=== PATIENT | female | born 1940 | race Caucasian/White ===

== ENCOUNTER 2016-09-22 12:14 | Inpatient (IN) | payer OTHER, MEDICARE ==
--- NOTE | ~2016-09-22 | EGD ---
EGD REPORT [facility] [address] [address] NAME: SOCO HERRERA : 42 STATUS : ADM IN [facility]#: [id number] AGE: 75 ADM/REG DATE : 09/22/16 MR#: [id number] REPORT SERV DATE: 10/08/16 DICTATED BY: RYAN MATHEWS DATE: 10/08/16 REPORT STATUS : Draft TRANSCRIBED BY: [employer] DATE: 10/08/16 THIS EXAM WAS SENT IN ERROR
--- NOTE | ~2016-09-22 | DS ---
Discharge Summary [facility] [address] [place]. [address] NAME: SOCO HERRERA : 42 STATUS : DIS IN PAT#: [id number] AGE: 75 ADM/REG DATE : 09/22/16 MR#: [id number] REPORT SERV DATE: 10/09/16 DICTATED BY: LESLEE SERRANO DATE: 10/08/16 REPORT STATUS : Draft TRANSCRIBED BY: MODL DATE: 10/08/16 ADMISSION DATE: 09/22/2016 DISCHARGE DATE: 10/08/2016 PRINCIPAL DIAGNOSIS: Lumbar spine infection, status post surgical repair of an L1 compression fracture. SECONDARY DIAGNOSES: Uncontrolled diarrhea, uncontrolled abdominal and back pain, respiratory failure with hypoxemia, and hypertension. HISTORY OF PRESENT ILLNESS: Please see Dr. Ovalle's dictation on 09/28/2016. HOSPITAL COURSE: Please see interim summary by Dr. Zamarripa on 10/05/2016. Subsequent hospital course: The patient's colonoscopy was negative. Pathology was negative. Symptomatic care was applied to the diarrhea with the cessation of medicines that may cause diarrhea including Aricept and initiation of cholestyramine and Levsin therapy. Diarrhea did in fact slow down to a satisfactory level. She still had abdominal pain and back pain but was able to eat and was able to tolerate transition to a longterm facility on 10/08/2016 with diet as tolerated and activity as tolerated with the following medications: Remeron 15 at bedtime, Mylicon t.i.d., Levsin q.4 hours p.r.n., continue intravenous vancomycin for 37 additional days, Valium p.r.n., Norvasc daily, oxycodone p.r.n., Lipitor at bedtime. She will follow up with Dr. Young in a month as well as Dr. Lovell following longterm facility discharge and completion of her antibiotics. LO/OSCAR Leslee Serrano M.D. / [id number] CC: Candelaria Mack II, M.D. Paul Cornea, M.D.
--- NOTE | ~2016-09-22 | EGD ---
EGD REPORT [address] [address] NAME: ESTEFANY CAMARGO : 42 STATUS : ADM IN PAT#: [id number] AGE: 75 ADM/REG DATE : 09/22/16 MR#: [id number] REPORT SERV DATE: 10/07/16 DICTATED BY: DASH MATHEWS DATE: 10/07/16 REPORT STATUS : Draft TRANSCRIBED BY: [facility] DATE: 10/07/16 Endoscopy Center Patient Name: Estefany Camargo Date of : 1940 Attending MD: DASH MATHEWS MD Procedure Date No Time: 10/05/2016 Procedure: Colonoscopy Indications: Abnormal CT of the GI tract Medicines: Monitored Anesthesia Care Complications: No immediate complications. Estimated blood loss: Minimal. Procedure: Pre-Anesthesia Assessment: - ASA Grade Assessment: IV - A patient with severe systemic disease that is a constant threat to life. After I obtained informed consent, the scope was passed under direct vision. Throughout the procedure, the patient's blood pressure, pulse, and oxygen saturations were monitored continuously. The CF [id number] was introduced through the anus and advanced to the terminal ileum, with identification of the appendiceal orifice and IC valve. The colonoscopy was performed without difficulty. The patient tolerated the procedure well. The quality of the bowel preparation was good. Findings: The perianal and digital rectal examinations were normal. Pertinent negatives include no palpable rectal lesions. The terminal ileum contained multiple petechiae. Biopsies were taken with a cold forceps for histology. Estimated blood loss was minimal. Multiple petechiae were found at the ileocecal valve. Biopsies were taken with a cold forceps for histology. Estimated blood loss was minimal. A few small-mouthed diverticula were found in the sigmoid colon. The scope was unable to be retroflexed in the rectum, but the remainder of the exam was otherwise without abnormality. Impression: - Petechia(e) in the terminal ileum. Biopsied. - Petechia(e) at the ileocecal valve. Biopsied. - Diverticulosis in the sigmoid colon. - The examination was otherwise normal. Recommendation: - Return patient to hospital [facility] for ongoing care. Procedure Code(s): --- Professional --- 79980, Colonoscopy, flexible, proximal to splenic EGD REPORT [facility] [address] [place]. [address] NAME: ESTEFANY CAMARGO : 42 STATUS : ADM IN [facility]#: [id number] AGE: 75 ADM/REG DATE : 09/22/16 MR#: [id number] REPORT SERV DATE: 10/07/16 DICTATED BY: DASH MATHEWS DATE: 10/07/16 REPORT STATUS : Draft TRANSCRIBED BY: [employer] DATE: 10/07/16 flexure; with biopsy, single or multiple Diagnosis Code(s): --- Professional --- K63.89, Other specified diseases of intestine K57.30, Diverticulosis of large intestine without perforation or abscess without bleeding R93.3, Abnormal findings on diagnostic imaging of other parts of digestive tract CPT copyright 2013 [employer]. All rights reserved. The codes documented in this report are preliminary and upon partner review may be revised to meet current compliance requirements. Dash Mathews MD DASH MATHEWS MD 10/05/2016 8:27 AM This report has been signed electronically. Number of Addenda: 0 Note Initiated On: 10/05/2016 7:18 AM Scope Withdrawal Time 0 hours 14 minutes 21 seconds [id number] [place] [id number]
--- NOTE | ~2016-09-22 | IDS ---
Interim Discharge Summary [facility] [address] [place]. [address] NAME: SOCO HERRERA : 42 STATUS : ADM IN PAT#: [id number] AGE: 75 ADM/REG DATE : 09/22/16 MR#: [id number] REPORT SERV DATE: 09/28/16 DICTATED BY: ANAHY MORENO DATE: 09/28/16 REPORT STATUS : Draft TRANSCRIBED BY: MODLexa DATE: 09/28/16 ADMISSION DATE: 09/22/2016 DISCHARGE DATE: Date of transfer to this hospital from [place] was 09/22/2016. DIAGNOSES: So far: 1. 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 This is stable, and this is multifactorial. It is probably a combination of dementia, narcotic dependence, benzodiazepine dependence, which have all been addressed and the patient has carrasquillo weaned off most of them or kept on just minimal doses of opiates for now. 2. Functional paraplegia. 3. Physical deconditioning. 4. Chronic moderate dementia with altering mood. 5. Recent repair of L1 burst fracture and arthrodesis by Dr. Lovell on 07/28/2016. 6. A 2 cm seroma at the level of T12 vertebral body for which Dr. Lovell has evaluated again and has suggested no further intervention. 7. 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 This wound culture was positive for methicillin-resistant Staphylococcus aureus and has been treated with vancomycin IV for seven days. The patient is not a candidate for any more antibiotics as the patient has had diarrhea and even though her stool Clostridium difficile is negative, her stool culture displaced absolutely no normal fecal javier. Hence, this candidate is at high risk for Clostridium difficile colitis. Hence, no further antibiotics necessary for this. Only local wound care and I have advised 2% mupirocin application to the area before dressing it. 8. Elevated troponin I, likely a type 2 event and this is stable right now. 9. Other chronic issues include hypertension, acute kidney injury which has resolved, history of breast cancer, and asthma, which are all stable. BRIEF HOSPITAL COURSE: During which I took care of this patient, the patient continues to be in encephalopathy. She has a history of being dependent on narcotics and benzodiazepines. No benzodiazepines have been given to this patient while in the hospital. However, her narcotic use has been minimized to p.r.n. only and just the least minimal dose that is at least effective dose. The patient has been treated with IV vancomycin as her wound culture came back positive for MRSA. However, after the patient has received IV vancomycin for seven days, this has been stopped because the patient had diarrhea and even though her stool C. diff is negative, her stool culture shows no normal fecal javier. The patient other than that, continued to be stable and Wound Care has been given to the patient, and the patient has been receiving local good wound care. Her Iodosorb dressings have been changed to regular dressings, but with application of 2% mupirocin every day before changing the dressings. This should control the MRSA locally. The patient was actually ready for discharge on 09/28/2016 and is medically stable for the discharge. However because of reasons like insurance approval etc., the patient's transfer to an inpatient rehab facility has been delayed. My colleague will be taken over care of this patient on 09/29/2016. Interim Discharge Summary [address] [address] NAME: SOCO HERRERA : 42 STATUS : ADM IN [facility]#: [id number] AGE: 75 ADM/REG DATE : 09/22/16 MR#: [id number] REPORT SERV DATE: 09/28/16 DICTATED BY: ANAHY MORENO DATE: 09/28/16 REPORT STATUS : Draft TRANSCRIBED BY: OSCAR DATE: 09/28/16 FAVIOLA/OSCAR Anahy Moreno M.D. / [id number] CC: Anahy Moreno M.D.
--- NOTE | ~2016-09-22 | EGD ---
EGD REPORT [facility] [address] [address] NAME: ESTEFANY CAMARGO : 42 STATUS : ADM IN PAT#: [id number] AGE: 75 ADM/REG DATE : 09/22/16 MR#: [id number] REPORT SERV DATE: 10/08/16 DICTATED BY: DASH MATHEWS DATE: 10/08/16 REPORT STATUS : Draft [facility]ANSCRIBED BY: [facility] DATE: 10/08/16 Endoscopy Center Patient Name: Estefany Camargo Date of : 1940 Attending MD: DASH MATHEWS MD Procedure Date No Time: 10/05/2016 Procedure: Colonoscopy Indications: Abnormal CT of the GI tract Medicines: Monitored Anesthesia Care Complications: No immediate complications. Estimated blood loss: Minimal. Procedure: Pre-Anesthesia Assessment: - ASA Grade Assessment: IV - A patient with severe systemic disease that is a constant threat to life. After I obtained informed consent, the scope was passed under direct vision. Throughout the procedure, the patient's blood pressure, pulse, and oxygen saturations were monitored continuously. The CF [id number] was introduced through the anus and advanced to the terminal ileum, with identification of the appendiceal orifice and IC valve. The colonoscopy was performed without difficulty. The patient tolerated the procedure well. The quality of the bowel preparation was good. Findings: The perianal and digital rectal examinations were normal. Pertinent negatives include no palpable rectal lesions. The terminal ileum contained multiple petechiae. Biopsies were taken with a cold forceps for histology. Estimated blood loss was minimal. Multiple petechiae were found at the ileocecal valve. Biopsies were taken with a cold forceps for histology. Estimated blood loss was minimal. A few small-mouthed diverticula were found in the sigmoid colon. The scope was unable to be retroflexed in the rectum, but the remainder of the exam was otherwise without abnormality. Impression: - Petechia(e) in the terminal ileum. Biopsied. - Petechia(e) at the ileocecal valve. Biopsied. - Diverticulosis in the sigmoid colon. - The examination was otherwise normal. Recommendation: - Return patient to hospital [facility] for ongoing care. Procedure Code(s): --- Professional --- 70216, Colonoscopy, flexible, proximal to splenic EGD REPORT [facility] [address] [place]. [address] NAME: ESTEFANY CAMARGO : 42 STATUS : ADM IN [facility]#: [id number] AGE: 75 ADM/REG DATE : 09/22/16 MR#: [id number] REPORT SERV DATE: 10/08/16 DICTATED BY: DASH MATHEWS DATE: 10/08/16 REPORT STATUS : Draft TRANSCRIBED BY: [employer] DATE: 10/08/16 flexure; with biopsy, single or multiple Diagnosis Code(s): --- Professional --- K63.89, Other specified diseases of intestine K57.30, Diverticulosis of large intestine without perforation or abscess without bleeding R93.3, Abnormal findings on diagnostic imaging of other parts of digestive tract CPT copyright 2013 [employer] [place] [employer]. All rights reserved. The codes documented in this report are preliminary and upon perioperative assistant review may be revised to meet current compliance requirements. Dash Mathews MD DASH MATHEWS MD 10/05/2016 8:27 AM This report has been signed electronically. Number of Addenda: 0 Note Initiated On: 10/05/2016 7:18 AM Scope Withdrawal Time 0 hours 14 minutes 21 seconds [id number] [place] [id number]
--- NOTE | ~2016-09-22 | CN ---
Consultation Report [facility] [address] [place]. [address] NAME: SOCO HERRERA : 42 STATUS : ADM IN [facility]#: [id number] AGE: 75 ADM/REG DATE : 09/22/16 MR#: [id number] REPORT SERV DATE: 10/02/16 DICTATED BY: WESLEY BAUTISTA DATE: 10/01/16 REPORT STATUS : Draft TRANSCRIBED BY: MODL DATE: 10/01/16 INFECTIOUS DISEASE CONSULT DATE OF CONSULTATION: REASON FOR CONSULT: Colitis and MRSA spine wound infection. HISTORY OF PRESENT ILLNESS: A 75 years old lady with hypertension, multiple vertebral fractures, "dementia," history of bilateral breast cancer, who was admitted at [facility] on 09/17/2016 with somnolence, decreased p.o. intake, low oxygen saturation and productive cough. Again, this is obtained from the chart. The patient is unable to help with much information. Thus, history goes that on 07/28/2016, she had back surgery for these vertebral fractures including L1 "burst fracture." She had arthrodesis from T10-L3. Apparently, she is on home oxygen. [facility]. At the emergency room, the thought was that she took excessive doses of opiates and she was given multiple doses of Narcan followed by a Narcan drip. She was admitted to ICU, given IV fluids. Chest x-ray was very difficult to interpret with poor inspiratory phase and due to obesity. Initially, she was not given antibiotics. On admission, the creatinine was high at 1.9, BUN 29, troponin 0.28. She had a low-grade fever. Blood pressure was initially high, then it became low. Subsequently, she was started on Zosyn around 09/21/2016, because it was thought she had an aspiration pneumonia. Subsequent chest x-ray was E. coli difficult to interpret. She had an MRI of the spine that showed small paraspinal fluid collections around T12 area and a lot of motion artifact. Because of that, she was eventually transferred to [facility] on 09/22/2016 to be seen by her surgeon, Dr. Maura Lovell. His impression was that these were normal or expected changes after such surgery and she needed just wound care. He described "minimal serous drainage." The wound culture grew MRSA, and I do not know how that was collected, but the Gram stain had rare white blood cells and few gram-positive cocci. For that reason, she was given a week of IV vancomycin. The Zosyn was stopped after about 6 days. While at [facility], she developed abdominal pain and abdominal distention. She had multiple stool studies done on 09/21/2016. Stool for white blood cell was negative, C. diff negative. Stool culture showed no pathogens, but no normal javier. Stool for C. diff again on 09/28/2016, was negative and a stool culture on the is pending. She finally had a CT scan without contrast that showed terminal ilium, cecum, ascending and proximal transverse colon wall thickening. For that reason, it sounds like the hourly shift doctor called in [facility] late on 09/29/2016. ID consult was requested yesterday evening and after I discussed with Dr. Zamarripa, I suggested holding this antibiotic since we are not sure what are we treating here, and follow on the stool culture to see if there are any new findings. Meanwhile, Dr. Zamarripa consulted Gastroenterology and the plan was to do a colonoscopy. However, the prep was not done, so that has to be delayed. The CT scan also showed moderate bilateral effusions with atelectases and some evidence of anasarca. Consultation Report [facility] [address] [place]. [address] NAME: SOCO HERRERA : 42 STATUS : ADM IN [facility]#: [id number] AGE: 75 ADM/REG DATE : 09/22/16 MR#: [id number] REPORT SERV DATE: 10/02/16 DICTATED BY: WESLEY BAUTISTA DATE: 10/01/16 REPORT STATUS : Draft TRANSCRIBED BY: MODL DATE: 10/01/16 Of note is that she has been afebrile almost the whole time in the hospital. Blood pressure has not been low. LABORATORY DATA: Lab work today shows a WBC of 6, segments 72, bands 2, hemoglobin 9. Yesterday procalcitonin was 0.08. Liver enzymes were not elevated. Creatinine 0.5. Lactic acid 0.8. Stool for white blood cells again, just 0-5 per high-power field. I tried to discuss with the patient, and she complains of diffuse abdominal pain as well as pain in the inguinal, perineal, and buttocks areas from severe inflammation of what looks like cutaneous candidiasis. She has occasional shortness of breath. She has some dysuria that she is using diapers. She has also nausea. It is unclear how much does she eat. She had one bowel movement today that was brown, liquidy, and one overnight. PAST MEDICAL HISTORY: As I mentioned above plus history of breast cancer. Unclear what kind of treatment did she have for it. She had multiple vertebral fractures. Reported history of chronic back pain. History of cholecystectomy, appendectomy, colon surgery for perforation, and right foot surgery. SOCIAL HISTORY: According to the chart, she is . FAMILY HISTORY: Diabetes, hypertension, and heart disease. MEDICATIONS ON ADMISSION: Albuterol inhaler, Lipitor, Valium p.r.n., Aricept, Lasix, lisinopril, omeprazole, oxybutynin, Roxicodone as needed, MiraLAX, Seroquel, Zoloft, and morphine. ALLERGIES: NONE REPORTED. CURRENT MEDICATIONS: Amlodipine, Lipitor, Aricept, Flonase, Protonix, MiraLAX, Seroquel, Florastor, and Zoloft. ASSESSMENT AND PLAN: 1. Spine surgical site purulent drainage. Prior wound culture grew MRSA. I think we need to reassess the depth of this process which clearly looks infected. I sent a message to Dr. Lovell to discuss with him the consult. 2. Terminal ileitis and right colitis of unknown etiology. She received multiple antibiotics here, a course of Zosyn followed by course of IV vancomycin and one day of Levaquin and Flagyl. However, she has no fever, no leukocytosis, no elevation of procalcitonin. She is unable to help me with more information. I agree with the colonoscopy and we will follow up a repeat stool culture. I discussed with the microbiology lab to look for any unusual organisms. 3. She has severe cutaneous candidiasis in the buttocks perineal and groin areas, and I discussed with the wound care nurse about it. We will use some Zhao cream. I will also request blood cultures because of the spine infection and restart IV vancomycin. I discussed with Dr. Zamarripa. Consultation Report [facility] [address] [place]. [address] NAME: SOCO HERRERA : 42 STATUS : ADM IN PAT#: [id number] AGE: 75 ADM/REG DATE : 09/22/16 MR#: [id number] REPORT SERV DATE: 10/02/16 DICTATED BY: WESLEY BAUTISTA DATE: 10/01/16 REPORT STATUS : Draft TRANSCRIBED BY: OSCAR DATE: 10/01/16 EZE/OSCAR Wesley Bautista M.D. / [id number] CC: Duarte Zamarripa M.D.
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
--- NOTE | ~2016-09-22 | EGD ---
EGD REPORT [facility] [address] [place] [address] NAME: ESTEFANY CAMARGO : 42 STATUS : ADM IN PAT#: [id number] AGE: 75 ADM/REG DATE : 09/22/16 MR#: [id number] REPORT SERV DATE: 10/07/16 DICTATED BY: DASH MATHEWS DATE: 10/07/16 REPORT STATUS : Draft TRANSCRIBED BY: [facility] DATE: 10/07/16 Endoscopy Center Patient Name: Estefany Camargo Date of : 1940 Attending MD: DASH MATHEWS MD Procedure Date No Time: 10/05/2016 Procedure: Colonoscopy Indications: Abnormal CT of the GI tract Medicines: Monitored Anesthesia Care Complications: No immediate complications. Estimated blood loss: Minimal. Procedure: Pre-Anesthesia Assessment: - ASA Grade Assessment: IV - A patient with severe systemic disease that is a constant threat to life. After I obtained informed consent, the scope was passed under direct vision. Throughout the procedure, the patient's blood pressure, pulse, and oxygen saturations were monitored continuously. The CF [id number] was introduced through the anus and advanced to the terminal ileum, with identification of the appendiceal orifice and IC valve. The colonoscopy was performed without difficulty. The patient tolerated the procedure well. The quality of the bowel preparation was good. Findings: The perianal and digital rectal examinations were normal. Pertinent negatives include no palpable rectal lesions. The terminal ileum contained multiple petechiae. Biopsies were taken with a cold forceps for histology. Estimated blood loss was minimal. Multiple petechiae were found at the ileocecal valve. Biopsies were taken with a cold forceps for histology. Estimated blood loss was minimal. A few small-mouthed diverticula were found in the sigmoid colon. The scope was unable to be retroflexed in the rectum, but the remainder of the exam was otherwise without abnormality. Impression: - Petechia(e) in the terminal ileum. Biopsied. - Petechia(e) at the ileocecal valve. Biopsied. - Diverticulosis in the sigmoid colon. - The examination was otherwise normal. Recommendation: - Return patient to [facility] for ongoing care. Procedure Code(s): --- Professional --- 84815, Colonoscopy, flexible, proximal to splenic EGD REPORT [place] [address] [place]. [address] NAME: ESTEFANY CAMARGO : 42 STATUS : [facility]#: [id number] AGE: 75 ADM/REG DATE : 09/22/16 MR#: [id number] REPORT SERV DATE: 10/07/16 DICTATED BY: DASH MATHEWS DATE: 10/07/16 REPORT STATUS : Draft TRANSCRIBED BY: [employer] DATE: 10/07/16 flexure; with biopsy, single or multiple Diagnosis Code(s): --- Professional --- K63.89, Other specified diseases of intestine K57.30, Diverticulosis of large intestine without perforation or abscess without bleeding R93.3, Abnormal findings on diagnostic imaging of other parts of digestive tract CPT copyright 2013 [employer]. All rights reserved. The codes documented in this report are preliminary and upon early childhood review may be revised to meet current compliance requirements. Dash Mathews MD DASH MATHEWS MD 10/05/2016 8:27 AM This report has been signed electronically. Number of Addenda: 0 Note Initiated On: 10/05/2016 7:18 AM Scope Withdrawal Time 0 hours 14 minutes 21 seconds [id number] [place] [id number]
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
--- NOTE | ~2016-09-22 | EGD ---
EGD REPORT [facility] [address] [place] [address] NAME: ESTEFANY CAMARGO : 42 STATUS : ADM IN PAT#: [id number] AGE: 75 ADM/REG DATE : 09/22/16 MR#: [id number] REPORT SERV DATE: 10/08/16 DICTATED BY: DASH MATHEWS DATE: 10/08/16 REPORT STATUS : Draft TRANSCRIBED BY: [facility] DATE: 10/08/16 Endoscopy Center Patient Name: Estefany Camargo Date of : 1940 Attending MD: DASH MATHEWS MD Procedure Date No Time: 10/05/2016 Procedure: Colonoscopy Indications: Abnormal CT of the GI tract Medicines: Monitored Anesthesia Care Complications: No immediate complications. Estimated blood loss: Minimal. Procedure: Pre-Anesthesia Assessment: - ASA Grade Assessment: IV - A patient with severe systemic disease that is a constant threat to life. After I obtained informed consent, the scope was passed under direct vision. Throughout the procedure, the patient's blood pressure, pulse, and oxygen saturations were monitored continuously. The CF [id number] was introduced through the anus and advanced to the terminal ileum, with identification of the appendiceal orifice and IC valve. The colonoscopy was performed without difficulty. The patient tolerated the procedure well. The quality of the bowel preparation was good. Findings: The perianal and digital rectal examinations were normal. Pertinent negatives include no palpable rectal lesions. The terminal ileum contained multiple petechiae. Biopsies were taken with a cold forceps for histology. Estimated blood loss was minimal. Multiple petechiae were found at the ileocecal valve. Biopsies were taken with a cold forceps for histology. Estimated blood loss was minimal. A few small-mouthed diverticula were found in the sigmoid colon. The scope was unable to be retroflexed in the rectum, but the remainder of the exam was otherwise without abnormality. Impression: - Petechia(e) in the terminal ileum. Biopsied. - Petechia(e) at the ileocecal valve. Biopsied. - Diverticulosis in the sigmoid colon. - The examination was otherwise normal. Recommendation: - Return patient to [facility] for ongoing care. Procedure Code(s): --- Professional --- 75170, Colonoscopy, flexible, proximal to splenic EGD REPORT [place] [id number] [place]. [address] NAME: ESTEFANY CAMARGO : 42 STATUS : ADM IN [facility]#: [id number] AGE: 75 ADM/REG DATE : 09/22/16 MR#: [id number] REPORT SERV DATE: 10/08/16 DICTATED BY: DASH MATHEWS DATE: 10/08/16 REPORT STATUS : Draft TRANSCRIBED BY: [employer] DATE: 10/08/16 flexure; with biopsy, single or multiple Diagnosis Code(s): --- Professional --- K63.89, Other specified diseases of intestine K57.30, Diverticulosis of large intestine without perforation or abscess without bleeding R93.3, Abnormal findings on diagnostic imaging of other parts of digestive tract CPT copyright 2013 [employer]. All rights reserved. The codes documented in this report are preliminary and upon armorer technician review may be revised to meet current compliance requirements. Dash Mathews MD DASH MATHEWS MD 10/05/2016 8:27 AM This report has been signed electronically. Number of Addenda: 0 Note Initiated On: 10/05/2016 7:18 AM Scope Withdrawal Time 0 hours 14 minutes 21 seconds [id number] [place] [id number]
--- NOTE | ~2016-09-22 | OP ---
Record Of Operation [facility] [address] [place]. [address] NAME: SOCO HERRERA : 42 STATUS : ADM IN [facility]#: [id number] AGE: 75 ADM/REG DATE : 09/22/16 MR#: [id number] REPORT SERV DATE: 10/03/16 DICTATED BY: LESTER LOVELL II DATE: 10/03/16 REPORT STATUS : Draft TRANSCRIBED BY: MODL DATE: 10/03/16 DATE OF PROCEDURE: 10/02/2016 PREOPERATIVE DIAGNOSES: 1. Recent thoracic fusion secondary to burst fracture. 2. Small thoracic area of skin necrosis, now concerning for dehiscence with likely colonization and possible infection. POSTOPERATIVE DIAGNOSES: 1. Recent thoracic fusion secondary to burst fracture. 2. Small thoracic area of skin necrosis, now concerning for dehiscence with likely colonization and possible infection. PROCEDURE: Irrigation and debridement including resection of skin and subcutaneous fat, thoracic wound. SURGEON: Lester Lovell M.D. FLUIDS: 200 mL LR. ESTIMATED BLOOD LOSS: 40 mL. DRAIN: Superficial Prevena skin V.A.C. PREOPERATIVE HISTORY: This is a friendly 75-year-old female, who was admitted from the halfway with concerns for wound dehiscence and skin necrosis. She is also having medical issues including severe gastrointestinal issues currently. She has been complaining of severe diarrhea since the time of admission. Gastroenterology was seeing her currently. Unfortunately, I saw her several days ago and she was unfortunately covered in feces around her torso area. The nursing staff has been trying to keep up with her bowel movements, but it seemingly has been difficult. At the time of admission, her thoracic area of necrosis appeared to be not full-thickness and likely going to improve with local wound care. Unfortunately, it is worsened, and I discussed it with Dr. Young. I saw the area of concern again, and it was unfortunately at this point open and now draining. DESCRIPTION OF PROCEDURE: After informed consent was obtained, the patient was brought to the operating room at her request, and general anesthesia achieved. She was placed in prone position and the back was prepped and draped in a sterile fashion. At this point, we then excised the area of skin necrosis. This essentially was now creating a sinus tract to her posterior spine following the development of this the central dehiscence. The excisionally debridement was then performed. Skin and subcutaneous tissues were then removed. Overall, we did not see any copious amount of fluid. There was some mild drainage seen superficially at the time of prepping. At this point, we went ahead and extended the dissection down to the spine. There was hardware present, but overall there was only a very small Record Of Operation [address] [place]. [address] NAME: SOCO HERRERA : 42 STATUS : ADM IN PAT#: [id number] AGE: 75 ADM/REG DATE : 09/22/16 MR#: [id number] REPORT SERV DATE: 10/03/16 DICTATED BY: LESTER LOVELL II DATE: 10/03/16 REPORT STATUS : Draft TRANSCRIBED BY: OSCAR DATE: 10/03/16 communication between the spine and the superficial area. The area was now copiously irrigated. Standard closure was then performed followed by placement of the superficial Prevena skin V.A.C. At this point, the patient was then extubated and transferred to PACU in stable condition. EDDIE/OSCAR Lester Lovell II, M.D. / [id number] CC: Duarte Zamarripa M.D.
[~2016-09-22 12:14] MED LIST: ABILIFY10 PO; AMB10 PO; ARICEPT10 PO; ASA5GR PO; ASAB PO; AT25 PO; ATARAX50B PO; COREG3 PO; DIOVAN HCT160 MG/25 PO; DITRO5; DITRO5 PO; FISH-EPA1000 MG PO; GLUCOSAMINEPO PO; L20 PO; LIPITOR10 PO; LORTAB 5 PO; MAXIDE; MELATONIN5 M1 PO; MICRO-K10 MEQ PO; MIRALAX POWDER1 PKT PO; MORPHINE SULFATE ER PO; NAP500 PO; OXYCOD PO; PEP20 PO; PRILO PO; PRILOSEC40 MG PO; PRIN10 PO; PRIN20 PO; SEROQUEL50 MG PO; TRAZ100 PO; TRAZ50 PO; ULTRAM50 PO; V2 PO; VENTOLIN HFA INH; ZESTRIL20 MG PO; ZOL100 PO; ZOL50 PO
[2016-09-23 06:02] LABS: BASOPHILS 0.3 %; BASOPHILS ABSOLUTE 0.03 10/3/uL (0.0-0.16); EOSINOPHILS 0.1 %; EOSINOPHILS ABSOLUTE 0.01 10/3/uL (0.0-0.53); HEMATOCRIT 29.9 % (36.0-48.0); HEMOGLOBIN 9.7 g/dL (12.0-16.0); IMMATURE GRANULOCYTES 2.3 %; IMMATURE GRANULOCYTES ABSOLUTE 0.23 10/3/uL (0.0-0.11); LYMPHOCYTES 10.1 %; MEAN PLATELET VOLUME 9.3 fL (9.2-13.0); MONOCYTES 7.5 %; MONOCYTES ABSOLUTE 0.74 10/3/uL (0.21-1.20); NEUTROPHILS 79.7 %; NEUTROPHILS ABSOLUTE 7.86 10/3/uL (2.02-8.40); PLATELET COUNT 186 10/3/uL (150-400); RBC DISTRIBUTION WIDTH 16.5 % (12.0-16.0); RED CELL COUNT 3.13 10/6/uL (4.0-5.6); WHITE BLOOD CELLS 9.9 10/3/uL (4.5-10.5)
[2016-09-23 06:03] LABS: MANUAL DIFF NO %; MEAN CORPUS HGB CONC 32.4 g/dL (32.0-36.0); MEAN CORPUSCULAR VOLUME 95.5 fL (80-100)
[2016-09-23 06:14] LABS: BUN (BLOOD UREA NITROGEN) 9 MG/DL (6-23); CALCIUM, SERUM 8.4 MG/DL (8.5-10.4); CHLORIDE, SERUM 114 MMOL/L (96-112); CO2 (CARBON DIOXIDE) 23 MMOL/L (24-34); CREATININE 0.57 MG/DL (0.55-1.02); GFR AFRICAN AMERICAN 106 ML/MIN (>=60); GFR NON AFRICAN AMERICAN 91 ML/MIN (>=60); SODIUM, SERUM 147 MMOL/L (135-148)
[2016-09-23 06:15] LABS: GLUCOSE, SERUM 114 MG/DL (60-99); POTASSIUM, SERUM 3.5 MMOL/L (3.5-5.3)
[2016-09-24 06:14] LABS: HEMATOCRIT 29.8 % (36.0-48.0); HEMOGLOBIN 9.6 g/dL (12.0-16.0); MEAN CORPUS HGB CONC 32.2 g/dL (32.0-36.0); MEAN CORPUSCULAR HEMOGLOB 31.3 pg (26.0-34.0); MEAN CORPUSCULAR VOLUME 97.1 fL (80-100); MEAN PLATELET VOLUME 8.9 fL (9.2-13.0); PLATELET COUNT 207 10/3/uL (150-400); RBC DISTRIBUTION WIDTH 16.2 % (12.0-16.0); RED CELL COUNT 3.07 10/6/uL (4.0-5.6); WHITE BLOOD CELLS 10.4 10/3/uL (4.5-10.5)
[2016-09-24 06:15] LABS: MANUAL DIFF YES %
[2016-09-24 06:36] LABS: BUN (BLOOD UREA NITROGEN) 7 MG/DL (6-23); CALCIUM, SERUM 8.7 MG/DL (8.5-10.4); CHLORIDE, SERUM 112 MMOL/L (96-112); CO2 (CARBON DIOXIDE) 22 MMOL/L (24-34); CREATININE 0.55 MG/DL (0.55-1.02); GFR AFRICAN AMERICAN 107 ML/MIN (>=60); GFR NON AFRICAN AMERICAN 92 ML/MIN (>=60); GLUCOSE, SERUM 127 MG/DL (60-99); SODIUM, SERUM 143 MMOL/L (135-148); VANCOMYCIN TROUGH 10.3 MCG/ML (10.0-20.0)
[2016-09-24 08:13] LABS: BAND NEUTROPHILS 2 %; LYMPHOCYTES 11 %; LYMPHOCYTES ABSOLUTE (CALC) 1.14 10/3/uL (0.67-4.30); MONOCYTES 3 %; MONOCYTES ABSOLUTE (CALC) 0.31 10/3/uL (0.21-1.20); NEUTROPHILS ABSOLUTE (CALC) 8.94 10/3/uL (2.02-8.40); PLATELET ESTIMATE ADQ (ADEQUATE); RBC MORPHOLOGY NORM (NORMAL); SEGMENTED NEUTROPHIL (0) 84 %; TOTAL NUCLEATED CELLS 100
[2016-09-24 12:59] LABS: ALLENS TEST Pos; BE (BASE EXCESS) -2.2 MEQ/L (0 +/- 2.5); CARBOXYHEMOGLOBIN 0.1 % (0-3); DEVICE NC; HCO3 (ACTUAL BICARBONATE) 22.3 MEQ/L (23-27); HEMOBLOGIN CONTENT 10.1 G/DL (12-16); INSTRUMENT SERIAL # 8083; METHEMOGLOBIN 0.1 % (0-3); O2 CONTENT 13.9 VOL% (18-24); PCO2 (CO2 TENSION) 37 MMHG (35-45); PO2 (O2 TENSION) 93 MMHG (79-93); SAMPLE Arterial; pH 7.39 (7.37-7.43)
[2016-09-25 04:48] LABS: BASOPHILS 0.2 %; BASOPHILS ABSOLUTE 0.02 10/3/uL (0.0-0.16); EOSINOPHILS 1.6 %; EOSINOPHILS ABSOLUTE 0.14 10/3/uL (0.0-0.53); HEMATOCRIT 27.7 % (36.0-48.0); HEMOGLOBIN 8.6 g/dL (12.0-16.0); IMMATURE GRANULOCYTES 1.8 %; IMMATURE GRANULOCYTES ABSOLUTE 0.16 10/3/uL (0.0-0.11); LYMPHOCYTES 13.6 %; LYMPHOCYTES ABSOLUTE 1.19 10/3/uL (0.67-4.30); MANUAL DIFF NO %; MEAN CORPUSCULAR HEMOGLOB 30.4 pg (26.0-34.0); MEAN CORPUSCULAR VOLUME 97.9 fL (80-100); MEAN PLATELET VOLUME 9.1 fL (9.2-13.0); MONOCYTES 9.9 %; MONOCYTES ABSOLUTE 0.86 10/3/uL (0.21-1.20); NEUTROPHILS 72.9 %; NEUTROPHILS ABSOLUTE 6.36 10/3/uL (2.02-8.40); PLATELET COUNT 160 10/3/uL (150-400); RBC DISTRIBUTION WIDTH 16.2 % (12.0-16.0); RED CELL COUNT 2.83 10/6/uL (4.0-5.6); WHITE BLOOD CELLS 8.7 10/3/uL (4.5-10.5)
[2016-09-25 05:07] LABS: BUN (BLOOD UREA NITROGEN) 7 MG/DL (6-23); CALCIUM, SERUM 7.9 MG/DL (8.5-10.4); CHLORIDE, SERUM 113 MMOL/L (96-112); CO2 (CARBON DIOXIDE) 20 MMOL/L (24-34); CREATININE 0.51 MG/DL (0.55-1.02); GFR AFRICAN AMERICAN 110 ML/MIN (>=60); GFR NON AFRICAN AMERICAN 95 ML/MIN (>=60); GLUCOSE, SERUM 81 MG/DL (60-99); POTASSIUM, SERUM 3.6 MMOL/L (3.5-5.3); SODIUM, SERUM 147 MMOL/L (135-148)
[2016-09-27 06:51] LABS: HEMATOCRIT 31.1 % (36.0-48.0); MANUAL DIFF YES %; MEAN CORPUS HGB CONC 32.2 g/dL (32.0-36.0); MEAN CORPUSCULAR HEMOGLOB 31.2 pg (26.0-34.0); MEAN CORPUSCULAR VOLUME 96.9 fL (80-100); MEAN PLATELET VOLUME 9.8 fL (9.2-13.0); NUCLEATED RED BLOOD CELLS 2.1 /100WBC (0-0); PLATELET COUNT 218 10/3/uL (150-400); RBC DISTRIBUTION WIDTH 16.7 % (12.0-16.0); RED CELL COUNT 3.21 10/6/uL (4.0-5.6); WHITE BLOOD CELLS 8.5 10/3/uL (4.5-10.5)
[2016-09-27 07:02] LABS: CALCIUM, SERUM 8.1 MG/DL (8.5-10.4); CHLORIDE, SERUM 107 MMOL/L (96-112); CO2 (CARBON DIOXIDE) 24 MMOL/L (24-34); CREATININE 0.45 MG/DL (0.55-1.02); GFR AFRICAN AMERICAN 114 ML/MIN (>=60); GFR NON AFRICAN AMERICAN 99 ML/MIN (>=60); SODIUM, SERUM 142 MMOL/L (135-148)
[2016-09-27 07:04] LABS: BUN (BLOOD UREA NITROGEN) 2 MG/DL (6-23); GLUCOSE, SERUM 118 MG/DL (60-99); POTASSIUM, SERUM 3.3 MMOL/L (3.5-5.3)
[2016-09-27 07:44] LABS: BAND NEUTROPHILS 7 %; IMMATURE GRANS ABSOLUTE (CALC) 0.26 10/3/uL (0.0-0.11); LYMPHOCYTES 11 %; LYMPHOCYTES ABSOLUTE (CALC) 0.94 10/3/uL (0.67-4.30); METAMYELOCYTES 1 %; MONOCYTES 6 %; MONOCYTES ABSOLUTE (CALC) 0.51 10/3/uL (0.21-1.20); MYELOCYTES 2 %; SEGMENTED NEUTROPHIL (0) 73 %; TOTAL NUCLEATED CELLS 100
[2016-09-27 07:46] LABS: ANISOCYTOSIS 1+ (5-10/OIF) (0-5/OIF); PLATELET ESTIMATE ADQ (ADEQUATE)
[2016-09-28 06:42] LABS: HEMATOCRIT 29.5 % (36.0-48.0); HEMOGLOBIN 9.6 g/dL (12.0-16.0); MEAN CORPUS HGB CONC 32.5 g/dL (32.0-36.0); MEAN CORPUSCULAR VOLUME 95.2 fL (80-100); PLATELET COUNT 201 10/3/uL (150-400); RBC DISTRIBUTION WIDTH 16.9 % (12.0-16.0); WHITE BLOOD CELLS 8.4 10/3/uL (4.5-10.5)
[2016-09-28 06:43] LABS: MANUAL DIFF YES %
[2016-09-28 06:59] LABS: BUN (BLOOD UREA NITROGEN) 3 MG/DL (6-23); CALCIUM, SERUM 8.1 MG/DL (8.5-10.4); CHLORIDE, SERUM 107 MMOL/L (96-112); CO2 (CARBON DIOXIDE) 25 MMOL/L (24-34); GFR AFRICAN AMERICAN 111 ML/MIN (>=60); GFR NON AFRICAN AMERICAN 95 ML/MIN (>=60); GLUCOSE, SERUM 102 MG/DL (60-99); SODIUM, SERUM 144 MMOL/L (135-148)
[2016-09-28 07:34] LABS: BAND NEUTROPHILS 7 %; LYMPHOCYTES 10 %; LYMPHOCYTES ABSOLUTE (CALC) 0.84 10/3/uL (0.67-4.30); MONOCYTES 6 %; NEUTROPHILS ABSOLUTE (CALC) 7.06 10/3/uL (2.02-8.40); PLATELET ESTIMATE ADQ (ADEQUATE); RBC MORPHOLOGY NORM (NORMAL); SEGMENTED NEUTROPHIL (0) 77 %; TOTAL NUCLEATED CELLS 100
[2016-09-30 05:41] LABS: A/G RATIO 0.6 (0.7-1.9); ALBUMIN 2.2 G/DL (3.5-5.0); BUN (BLOOD UREA NITROGEN) 3 MG/DL (6-23); CALCIUM, SERUM 7.9 MG/DL (8.5-10.4); CHLORIDE, SERUM 101 MMOL/L (96-112); CO2 (CARBON DIOXIDE) 29 MMOL/L (24-34); GFR AFRICAN AMERICAN 119 ML/MIN (>=60); GFR NON AFRICAN AMERICAN 103 ML/MIN (>=60); GLUCOSE, SERUM 113 MG/DL (60-99); SGPT(ALT) 20 U/L (5-65); SODIUM, SERUM 143 MMOL/L (135-148); TOTAL BILIRUBIN 0.8 MG/DL (0-1.2); TOTAL PROTEIN 6.2 G/DL (6.0-8.5)
[2016-09-30 05:43] LABS: ALKALINE PHOSPHATASE 87 U/L (45-117); HEMATOCRIT 30.5 % (36.0-48.0); HEMOGLOBIN 9.9 g/dL (12.0-16.0); MEAN CORPUS HGB CONC 32.5 g/dL (32.0-36.0); MEAN CORPUSCULAR VOLUME 95.6 fL (80-100); NUCLEATED RED BLOOD CELLS 0.7 /100WBC (0-0); PLATELET COUNT 243 10/3/uL (150-400); POTASSIUM, SERUM 2.6 MMOL/L (3.5-5.3); RBC DISTRIBUTION WIDTH 16.3 % (12.0-16.0); RED CELL COUNT 3.19 10/6/uL (4.0-5.6); SGOT(AST) 37 U/L (5-40); WHITE BLOOD CELLS 7.2 10/3/uL (4.5-10.5)
[2016-09-30 05:44] LABS: MANUAL DIFF YES %
[2016-09-30 06:08] LABS: PROCALCITONIN 0.08 ng/mL (<0.5)
[2016-09-30 06:12] LABS: BAND NEUTROPHILS 4 %; LYMPHOCYTES 17 %; LYMPHOCYTES ABSOLUTE (CALC) 1.22 10/3/uL (0.67-4.30); MONOCYTES 10 %; MONOCYTES ABSOLUTE (CALC) 0.72 10/3/uL (0.21-1.20); NEUTROPHILS ABSOLUTE (CALC) 5.26 10/3/uL (2.02-8.40); PLATELET ESTIMATE ADQ (ADEQUATE); RBC MORPHOLOGY ABN (NORMAL); SEGMENTED NEUTROPHIL (0) 69 %; TOTAL NUCLEATED CELLS 100
[2016-10-01 05:13] LABS: INTERNATIONAL NORMAL RATI 1.5 UNITS (-); PROTIME (NOT ORD) 17.6 SEC (12.0-14.5)
[2016-10-01 05:20] LABS: HEMATOCRIT 29.7 % (36.0-48.0); HEMOGLOBIN 9.4 g/dL (12.0-16.0); MANUAL DIFF YES %; MEAN CORPUS HGB CONC 31.6 g/dL (32.0-36.0); MEAN CORPUSCULAR HEMOGLOB 30.7 pg (26.0-34.0); MEAN CORPUSCULAR VOLUME 97.1 fL (80-100); MEAN PLATELET VOLUME 9.1 fL (9.2-13.0); PLATELET COUNT 226 10/3/uL (150-400); RBC DISTRIBUTION WIDTH 16.9 % (12.0-16.0); RED CELL COUNT 3.06 10/6/uL (4.0-5.6); WHITE BLOOD CELLS 6.7 10/3/uL (4.5-10.5)
[2016-10-01 05:27] LABS: A/G RATIO 0.8 (0.7-1.9); ALBUMIN 2.4 G/DL (3.5-5.0); ALKALINE PHOSPHATASE 98 U/L (45-117); BUN (BLOOD UREA NITROGEN) 2 MG/DL (6-23); CHLORIDE, SERUM 105 MMOL/L (96-112); CO2 (CARBON DIOXIDE) 31 MMOL/L (24-34); CREATININE 0.49 MG/DL (0.55-1.02); GFR AFRICAN AMERICAN 111 ML/MIN (>=60); GFR NON AFRICAN AMERICAN 96 ML/MIN (>=60); GLOBULIN 3.2 G/DL (2.5-4.1); GLUCOSE, SERUM 108 MG/DL (60-99); POTASSIUM, SERUM 3.4 MMOL/L (3.5-5.3); SGOT(AST) 22 U/L (5-40); SGPT(ALT) 16 U/L (5-65); SODIUM, SERUM 144 MMOL/L (135-148); TOTAL BILIRUBIN 0.7 MG/DL (0-1.2); TOTAL PROTEIN 5.6 G/DL (6.0-8.5)
[2016-10-01 06:40] LABS: BAND NEUTROPHILS 2 %; EOSINOPHILS 1 %; EOSINOPHILS ABSOLUTE (CALC) 0.07 10/3/uL (0.0-0.53); LYMPHOCYTES 17 %; LYMPHOCYTES ABSOLUTE (CALC) 1.14 10/3/uL (0.67-4.30); MONOCYTES 8 %; MONOCYTES ABSOLUTE (CALC) 0.54 10/3/uL (0.21-1.20); NEUTROPHILS ABSOLUTE (CALC) 4.96 10/3/uL (2.02-8.40); PLATELET ESTIMATE ADQ (ADEQUATE); SEGMENTED NEUTROPHIL (0) 72 %; TOTAL NUCLEATED CELLS 100
[2016-10-01 06:41] LABS: RBC MORPHOLOGY NORM (NORMAL)
[2016-10-02 07:29] LABS: BASOPHILS 0.4 %; BASOPHILS ABSOLUTE 0.03 10/3/uL (0.0-0.16); EOSINOPHILS 1.7 %; EOSINOPHILS ABSOLUTE 0.12 10/3/uL (0.0-0.53); HEMATOCRIT 30.1 % (36.0-48.0); HEMOGLOBIN 9.5 g/dL (12.0-16.0); IMMATURE GRANULOCYTES 1.4 %; LYMPHOCYTES 20.1 %; LYMPHOCYTES ABSOLUTE 1.44 10/3/uL (0.67-4.30); MANUAL DIFF NO %; MEAN CORPUS HGB CONC 31.6 g/dL (32.0-36.0); MEAN CORPUSCULAR VOLUME 98.4 fL (80-100); MONOCYTES 10.5 %; MONOCYTES ABSOLUTE 0.75 10/3/uL (0.21-1.20); NEUTROPHILS 65.9 %; NEUTROPHILS ABSOLUTE 4.73 10/3/uL (2.02-8.40); PLATELET COUNT 211 10/3/uL (150-400); RBC DISTRIBUTION WIDTH 16.7 % (12.0-16.0); RED CELL COUNT 3.06 10/6/uL (4.0-5.6); WHITE BLOOD CELLS 7.2 10/3/uL (4.5-10.5)
[2016-10-02 07:34] LABS: INTERNATIONAL NORMAL RATI 1.5 UNITS (-); PROTIME (NOT ORD) 17.5 SEC (12.0-14.5)
[2016-10-02 07:39] LABS: BUN (BLOOD UREA NITROGEN) 1 MG/DL (6-23); CALCIUM, SERUM 8.2 MG/DL (8.5-10.4); CHLORIDE, SERUM 106 MMOL/L (96-112); CO2 (CARBON DIOXIDE) 31 MMOL/L (24-34); GFR AFRICAN AMERICAN 111 ML/MIN (>=60); GFR NON AFRICAN AMERICAN 95 ML/MIN (>=60); GLUCOSE, SERUM 100 MG/DL (60-99); POTASSIUM, SERUM 3.1 MMOL/L (3.5-5.3); SODIUM, SERUM 145 MMOL/L (135-148)
[2016-10-03 07:25] LABS: HEMATOCRIT 29.8 % (36.0-48.0); HEMOGLOBIN 9.3 g/dL (12.0-16.0); MEAN CORPUS HGB CONC 31.2 g/dL (32.0-36.0); MEAN CORPUSCULAR HEMOGLOB 30.7 pg (26.0-34.0); MEAN CORPUSCULAR VOLUME 98.3 fL (80-100); MEAN PLATELET VOLUME 9.1 fL (9.2-13.0); PLATELET COUNT 209 10/3/uL (150-400); RBC DISTRIBUTION WIDTH 16.7 % (12.0-16.0); RED CELL COUNT 3.03 10/6/uL (4.0-5.6); WHITE BLOOD CELLS 8.6 10/3/uL (4.5-10.5)
[2016-10-03 07:26] LABS: MANUAL DIFF YES %
[2016-10-03 07:40] LABS: A/G RATIO 0.6 (0.7-1.9); ALBUMIN 2.3 G/DL (3.5-5.0); ALKALINE PHOSPHATASE 118 U/L (45-117); BUN (BLOOD UREA NITROGEN) 3 MG/DL (6-23); CHLORIDE, SERUM 102 MMOL/L (96-112); CO2 (CARBON DIOXIDE) 32 MMOL/L (24-34); CREATININE 0.61 MG/DL (0.55-1.02); GFR AFRICAN AMERICAN 104 ML/MIN (>=60); GFR NON AFRICAN AMERICAN 89 ML/MIN (>=60); GLOBULIN 4.1 G/DL (2.5-4.1); GLUCOSE, SERUM 103 MG/DL (60-99); POTASSIUM, SERUM 3.7 MMOL/L (3.5-5.3); SGOT(AST) 30 U/L (5-40); SGPT(ALT) 20 U/L (5-65); SODIUM, SERUM 143 MMOL/L (135-148); TOTAL BILIRUBIN 0.7 MG/DL (0-1.2); TOTAL PROTEIN 6.4 G/DL (6.0-8.5)
[2016-10-03 07:43] LABS: BAND NEUTROPHILS 3 %; EOSINOPHILS 1 %; EOSINOPHILS ABSOLUTE (CALC) 0.09 10/3/uL (0.0-0.53); LYMPHOCYTES 10 %; LYMPHOCYTES ABSOLUTE (CALC) 0.86 10/3/uL (0.67-4.30); MONOCYTES 4 %; MONOCYTES ABSOLUTE (CALC) 0.34 10/3/uL (0.21-1.20); NEUTROPHILS ABSOLUTE (CALC) 7.31 10/3/uL (2.02-8.40); PLATELET ESTIMATE ADQ (ADEQUATE); RBC MORPHOLOGY NORM (NORMAL); SEGMENTED NEUTROPHIL (0) 82 %; TOTAL NUCLEATED CELLS 100
[2016-10-04 06:21] LABS: BASOPHILS 0.3 %; BASOPHILS ABSOLUTE 0.02 10/3/uL (0.0-0.16); EOSINOPHILS 2.8 %; EOSINOPHILS ABSOLUTE 0.18 10/3/uL (0.0-0.53); HEMATOCRIT 25.5 % (36.0-48.0); HEMOGLOBIN 8.1 g/dL (12.0-16.0); IMMATURE GRANULOCYTES 0.9 %; IMMATURE GRANULOCYTES ABSOLUTE 0.06 10/3/uL (0.0-0.11); LYMPHOCYTES 29.5 %; LYMPHOCYTES ABSOLUTE 1.89 10/3/uL (0.67-4.30); MANUAL DIFF NO %; MEAN CORPUS HGB CONC 31.8 g/dL (32.0-36.0); MEAN CORPUSCULAR HEMOGLOB 31.2 pg (26.0-34.0); MEAN CORPUSCULAR VOLUME 98.1 fL (80-100); MEAN PLATELET VOLUME 9.2 fL (9.2-13.0); MONOCYTES 13.6 %; MONOCYTES ABSOLUTE 0.87 10/3/uL (0.21-1.20); NEUTROPHILS 52.9 %; NEUTROPHILS ABSOLUTE 3.39 10/3/uL (2.02-8.40); PLATELET COUNT 186 10/3/uL (150-400); RBC DISTRIBUTION WIDTH 16.8 % (12.0-16.0); WHITE BLOOD CELLS 6.4 10/3/uL (4.5-10.5)
[2016-10-04 06:31] LABS: BUN (BLOOD UREA NITROGEN) 4 MG/DL (6-23); CALCIUM, SERUM 8.1 MG/DL (8.5-10.4); CHLORIDE, SERUM 102 MMOL/L (96-112); CO2 (CARBON DIOXIDE) 31 MMOL/L (24-34); GFR AFRICAN AMERICAN 104 ML/MIN (>=60); GFR NON AFRICAN AMERICAN 90 ML/MIN (>=60); GLUCOSE, SERUM 94 MG/DL (60-99); POTASSIUM, SERUM 3.3 MMOL/L (3.5-5.3); SODIUM, SERUM 140 MMOL/L (135-148)
[2016-10-04 07:13] LABS: PROCALCITONIN 0.08 ng/mL (<0.5)
[2016-10-05 06:20] LABS: HEMOGLOBIN 8.8 g/dL (12.0-16.0); MEAN CORPUS HGB CONC 31.4 g/dL (32.0-36.0); MEAN CORPUSCULAR HEMOGLOB 30.7 pg (26.0-34.0); MEAN CORPUSCULAR VOLUME 97.6 fL (80-100); MEAN PLATELET VOLUME 8.8 fL (9.2-13.0); PLATELET COUNT 208 10/3/uL (150-400); RBC DISTRIBUTION WIDTH 16.3 % (12.0-16.0); RED CELL COUNT 2.87 10/6/uL (4.0-5.6)
[2016-10-05 06:25] LABS: MANUAL DIFF YES %
[2016-10-05 06:29] LABS: BUN (BLOOD UREA NITROGEN) 3 MG/DL (6-23); CALCIUM, SERUM 8.1 MG/DL (8.5-10.4); CHLORIDE, SERUM 102 MMOL/L (96-112); CO2 (CARBON DIOXIDE) 30 MMOL/L (24-34); CREATININE 0.59 MG/DL (0.55-1.02); GFR AFRICAN AMERICAN 105 ML/MIN (>=60); GFR NON AFRICAN AMERICAN 90 ML/MIN (>=60); GLUCOSE, SERUM 98 MG/DL (60-99); POTASSIUM, SERUM 3.1 MMOL/L (3.5-5.3); SODIUM, SERUM 142 MMOL/L (135-148)
[2016-10-05 06:44] LABS: INTERNATIONAL NORMAL RATI 1.3 UNITS (-); PROTIME (NOT ORD) 16.4 SEC (12.0-14.5)
[2016-10-05 08:04] LABS: BAND NEUTROPHILS 2 %; BASOPHILS 1 %; BASOPHILS ABSOLUTE (CALC) 0.06 10/3/uL (0.0-0.16); EOSINOPHILS 3 %; EOSINOPHILS ABSOLUTE (CALC) 0.18 10/3/uL (0.0-0.53); LYMPHOCYTES 26 %; LYMPHOCYTES ABSOLUTE (CALC) 1.56 10/3/uL (0.67-4.30); MONOCYTES 7 %; MONOCYTES ABSOLUTE (CALC) 0.42 10/3/uL (0.21-1.20); NEUTROPHILS ABSOLUTE (CALC) 3.78 10/3/uL (2.02-8.40); SEGMENTED NEUTROPHIL (0) 61 %; TOTAL NUCLEATED CELLS 100
[2016-10-05 08:05] LABS: PLATELET ESTIMATE ADQ (ADEQUATE); RBC MORPHOLOGY NORM (NORMAL)
[2016-10-05 14:35] LABS: % IRON SAT 23 % (20-50); FERRITIN 378 NG/ML (8-252); IRON BINDING CAPACITY 145 MCG/DL (225-410); IRON, SERUM 33 MCG/DL (35-150)
[2016-10-06 06:55] LABS: BUN (BLOOD UREA NITROGEN) 3 MG/DL (6-23); CALCIUM, SERUM 8.1 MG/DL (8.5-10.4); CHLORIDE, SERUM 107 MMOL/L (96-112); CO2 (CARBON DIOXIDE) 30 MMOL/L (24-34); CREATININE 0.65 MG/DL (0.55-1.02); GFR AFRICAN AMERICAN 101 ML/MIN (>=60); GFR NON AFRICAN AMERICAN 87 ML/MIN (>=60); GLUCOSE, SERUM 94 MG/DL (60-99); POTASSIUM, SERUM 3.6 MMOL/L (3.5-5.3); SODIUM, SERUM 144 MMOL/L (135-148)
[2016-10-07 05:36] LABS: BUN (BLOOD UREA NITROGEN) 4 MG/DL (6-23); CALCIUM, SERUM 7.8 MG/DL (8.5-10.4); CHLORIDE, SERUM 104 MMOL/L (96-112); CO2 (CARBON DIOXIDE) 30 MMOL/L (24-34); CREATININE 0.74 MG/DL (0.55-1.02); GFR AFRICAN AMERICAN 92 ML/MIN (>=60); GFR NON AFRICAN AMERICAN 80 ML/MIN (>=60); GLUCOSE, SERUM 87 MG/DL (60-99); SODIUM, SERUM 141 MMOL/L (135-148)
[2016-11-19] MEDS ORDERED: DEPAKOT250 PO (16:20)
[2016-11-19] MEDS ORDERED: SEROQUEL50 MG PO (16:22)
[2016-11-19] MEDS ORDERED: PRIN20 PO (16:36)
[2016-11-19] MEDS ORDERED: DITRO5 PO (16:36)
[2016-11-19] MEDS ORDERED: LIPITOR10 PO (16:36)
[2016-11-19] MEDS ORDERED: LOP25 PO (16:37)
[2016-11-19] MEDS ORDERED: REM15 PO (16:37)
[2016-11-19] MEDS ORDERED: ZOL50 PO (16:37)
[2016-11-19] MEDS ORDERED: PRILO PO (16:37)
[2016-11-19] MEDS ORDERED: ARICEPT10 PO (16:37)
[2016-11-19] MEDS ORDERED: ULTRAM50 PO (16:37)
[2016-11-23] MEDS ORDERED: NORV5 PO (10:18)
[2016-11-23] MEDS ORDERED: COREG6 PO (10:19)
[2016-11-23] MEDS ORDERED: KLOR-CON M2020 MEQ PO (10:20)
[2016-11-23] MEDS ORDERED: BUM1 PO (10:21)
[2016-11-23] MEDS ORDERED: PULRESP1 INH ×2 (10:23→10:29)
[2016-11-23] MEDS ORDERED: P10 PO (10:23)
[2016-11-23] MEDS ORDERED: ALBUTEROL5 INH (10:27)
== END 2016-10-08 17:27 | DRG 463 ==
LOC: 1SO 12:14
PROVIDERS: Hospitalist; Internal Medicine; Internal Medicine Gastroenterology; Internal Medicine Infectious Disease; Nurse Practitioner Family
PROC: 0DBC8ZX Excision of Ileocecal Valve, Via Natural or Artificial Opening Endoscopic, Diagnostic (ICD-10-PCS; 2016-10-05)
PROC: 0JB70ZZ Excision of Back Subcutaneous Tissue and Fascia, Open Approach (ICD-10-PCS; principal; 2016-10-05 07:58)
PROC: 02HV33Z Insertion of Infusion Device into Superior Vena Cava, Percutaneous Approach (ICD-10-PCS; 2016-10-06)
PROC: 4A02X4A Measurement of Cardiac Electrical Activity, Guidance, External Approach (ICD-10-PCS; 2016-10-06)
DX: T84.7XXA Infection and inflammatory reaction due to other internal orthopedic prosthetic devices, implants and grafts, initial encounter (principal); G92 Toxic encephalopathy; J96.01 Acute respiratory failure with hypoxia; J69.0 Pneumonitis due to inhalation of food and vomit; N17.9 Acute kidney failure, unspecified; J81.1 Chronic pulmonary edema; J90 Pleural effusion, not elsewhere classified; K55.9 Vascular disorder of intestine, unspecified; T81.32XA Disruption of internal operation (surgical) wound, not elsewhere classified, initial encounter; D62 Acute posthemorrhagic anemia; L02.212 Cutaneous abscess of back [any part, except buttock and flank]; M96.842 Postprocedural seroma of a musculoskeletal structure following a musculoskeletal system procedure; F03.90 Unspecified dementia, unspecified severity, without behavioral disturbance, psychotic disturbance, mood disturbance, and anxiety; J45.909 Unspecified asthma, uncomplicated; Y83.8 Other surgical procedures as the cause of abnormal reaction of the patient, or of later complication, without mention of misadventure at the time of the procedure; K57.30 Diverticulosis of large intestine without perforation or abscess without bleeding; G89.29 Other chronic pain; M54.9 Dorsalgia, unspecified; E87.6 Hypokalemia; I10 Essential (primary) hypertension; B37.9 Candidiasis, unspecified; F41.1 Generalized anxiety disorder; E78.5 Hyperlipidemia, unspecified; F32.9 Major depressive disorder, single episode, unspecified; T40.2X1A Poisoning by other opioids, accidental (unintentional), initial encounter; I95.2 Hypotension due to drugs; K21.9 Gastro-esophageal reflux disease without esophagitis; K63.89 Other specified diseases of intestine; F44.4 Conversion disorder with motor symptom or deficit; T40.605A Adverse effect of unspecified narcotics, initial encounter; T42.4X5A Adverse effect of benzodiazepines, initial encounter; B95.62 Methicillin resistant Staphylococcus aureus infection as the cause of diseases classified elsewhere; Z87.891 Personal history of nicotine dependence; Z79.899 Other long term (current) drug therapy; Z90.49 Acquired absence of other specified parts of digestive tract; Z85.3 Personal history of malignant neoplasm of breast; Z98.1 Arthrodesis status
CPT/HCPCS: 36569; 36600; 71010; 72146; 72157; 72158; 74176; 80048; 80053; 80069; 80076; 80202; 81001; 82550; 82553; 82607; 82728; 82805; 83540; 83550; 83605; 83735; 83880; 84100; 84132; 84145; 84484; 85025; 85610; 85730; 86140; 87015; 87040; 87045; 87046; 87046-59; 87070; 87075; 87077; 87102; 87116; 87186; 87205; 87493; 87493-59; 87641; 87899; 87899-59; 88305; 89055; 93005; 93975; 94640; 96374; 96376; 97110-GP; 97162-GP; 97164-GP; 97166-GO; 97168-GO; 97530-GP; 97535-GO; 99285; A9270-GY; A9577; C1751; C8929; G8978-CL-GP; G8979-CK-GP; J0360; J1940; J1956; J2310; J2405; J2543; J2710; J3010; J3370; J3480; Q9957

== ENCOUNTER 2016-10-28 12:38 | Inpatient (IN) | payer OTHER, MEDICARE ==
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
--- NOTE | ~2016-10-28 | HP ---
History And Physical [place] [address] [facility] [place]. [address] NAME: SOCO CAMARGO : 41 STATUS : ADM IN [facility]#: [id number] AGE: 75 ADM/REG DATE : 10/28/16 MR#: [id number] REPORT SERV DATE: 10/29/16 DICTATED BY: LESTER ROY DATE: 10/29/16 REPORT STATUS : Draft TRANSCRIBED BY: MODLexa DATE: 10/29/16 DATE OF ADMISSION: 10/28/2016 POINT OF ENTRY: [facility] Emergency Department. PRIMARY BOOK PACKER: Dr. Paz. CHIEF COMPLAINT: Shortness of breath. HISTORY OF PRESENT ILLNESS: Ms. Camargo is a 75-year-old female with a history of dementia, traumatic brain injury, functional paraplegia, chronic lower back pain, as well as chronic hypoxic respiratory failure of unclear etiology who presents to the emergency department today with reports of shortness of breath and hypoxemia. The patient is currently staying at a rehab center status post a recent prolonged hospitalization complicated by an MRSA postoperative wound infection for which she is on long-term IV vancomycin antibiotics. The patient seemed to be having peripheral IV access issues at her rehab facility. Therefore, she was at our Infusion Center today for placement of a PICC line when they noted that she was short of breath as well as hypoxemic on reportedly on room air. She was subsequently transferred to the emergency department. Initial evaluation in the emergency department notable for stable vital signs. She was saturating well on 6 L by nasal cannula. Workup revealed a mildly elevated troponin value of 0.16, although she denies any chest pain. Her creatinine is mildly elevated at 1.28. BNP mildly elevated 254. CT of the chest was negative for PE but did show some mild intravascular volume overload as well as bilateral large size pleural effusions. She was subsequently admitted to the Hospitalist Service for further evaluation and management. The patient is a very poor historian and currently has no complaints, but when pressed, does state that she is somewhat short of breath but denies any chest pain. She actually cannot tell me even why she is in the ER. In fact, I had to get the history from her as well as the ER staff and review of ER records. REVIEW OF SYSTEMS: Comprehensive review of systems otherwise negative unless listed in history of present illness. PAST MEDICAL HISTORY: 1. Chronic lower back pain. 2. Hypertension. 3. Hyperlipidemia. 4. Dementia. 5. Asthma. 6. Functional paraplegia. 7. Chronic hypoxic respiratory failure. 8. Traumatic brain injury. History And Physical [address] [place]. [address] NAME: SOCO CAMARGO : 41 STATUS : ADM IN [facility]#: [id number] AGE: 75 ADM/REG DATE : 10/28/16 MR#: [id number] REPORT SERV DATE: 10/29/16 DICTATED BY: LESTER ROY DATE: 10/29/16 REPORT STATUS : Draft TRANSCRIBED BY: OSCAR DATE: 10/29/16 9. MRSA postoperative wound infection. SURGICAL HISTORY: 1. Cholecystectomy. 2. Appendectomy. 3. Colon resection. 4. Open treatment of L1 burst fracture with T10 to L3 arthrodesis instrumentation in 07/2016. ALLERGIES: NO KNOWN DRUG ALLERGIES. HOME MEDICATIONS: 1. Tylenol 650 mg q.4 hours p.r.n. 2. DuoNeb one nebulization q.4 hours p.r.n. 3. Albuterol two puff inhalation q.4 hours p.r.n. 4. Norvasc 10 mg daily. 5. Lipitor 10 mg daily. 6. Questran 4 mg b.i.d. 7. Depakote 250 mg b.i.d. 8. Flonase one spray nasal b.i.d. 9. Levsin 0.125 mg q.4 hours p.r.n. 10.Ativan 0.5 mg q.8 hours p.r.n. 11.Remeron 15 mg at bedtime. 12.Oxybutynin 5 mg daily. 13.Roxicodone 5 mg q.6 hours p.r.n. 14.Potassium chloride 20 mEq daily. 15.Florastor 250 mg b.i.d. 16.Simethicone 120 mg t.i.d. 17.Vancomycin 1 g IV q.24 hours until 11/14/2016. SOCIAL HISTORY: She is a former smoker, quit about 16 years ago. Denies alcohol. Denies illicits. Currently at a rehab facility for her IV antibiotics. FAMILY MEDICAL HISTORY: Mother with dementia. Father with COPD. Siblings with diabetes. LABS AND IMAGIN. White count is 10.2, hemoglobin is 8.5, hematocrit is 28.3, and platelet count is 214. INR 1.1. 2. Sodium is 143, potassium 4.2, chloride 105, carbon dioxide 33, BUN 12, creatinine 1.28, glucose is 109, calcium is 8.7, and magnesium is 2.1. 3. Troponin is 0.16. BNP is 254. 4. ABG: PH is 7.43, pCO2 is 45, PO2 is 70, bicarb is 29, saturating 93% on unknown oxygen support. 5. EKG per my review shows normal sinus rhythm with some mild lateral ST depressions. 6. Chest x-ray per my review shows bilateral pleural effusions but no focal consolidation or infiltrate per my review. 7. CT of the chest is negative for PE but does show some evidence of intravascular volume History And Physical [address] [address] NAME: SOCO CAMARGO : 41 STATUS : ADM IN [facility]#: [id number] AGE: 75 ADM/REG DATE : 10/28/16 MR#: [id number] REPORT SERV DATE: 10/29/16 DICTATED BY: LESTER ROY DATE: 10/29/16 REPORT STATUS : Draft TRANSCRIBED BY: OSCAR DATE: 10/29/16 overload as well as large size bilateral pleural effusions with compressive atelectasis. PHYSICAL EXAMINATION: VITAL SIGNS: Temperature 98.4 degrees Fahrenheit, pulse is 83, respirations 20, saturating 95% on 6 L nasal cannula, and blood pressure 120/44. On recheck, blood pressure is now 169/70, pulse is 79, saturating 94% on 6 L by nasal cannula. GENERAL: The patient is awake, alert, in no acute distress. Resting comfortably in bed. She is a chronically ill-appearing elderly female. at bedside. The patient is a very poor historian. HEENT: Atraumatic and normocephalic. Moist mucous membranes. Pupils are equal, round, reactive to light and accommodation. Extraocular eye movements intact. No scleral icterus. NECK: No jugular venous distention. No carotid bruits. CARDIAC: Regular rate and rhythm. No murmurs or gallops. Normal S1, S2. LUNGS: She is on oxygen, in no respiratory distress. Does have some decreased breath sounds in the base as well as some mild inspiratory rales in the upper lung rashid. ABDOMEN: Obese, soft, nontender, nondistended. Good bowel sounds. No rebound, guarding, or rigidity. EXTREMITIES: Warm, perfused. No cyanosis, clubbing, or edema. SKIN: Warm and dry. PSYCH: Affect appropriate. NEURO: Alert and oriented x1 to person only. Cranial nerves 2 through 12 grossly intact. Speech is normal. Gait not assessed. ASSESSMENT: Ms. Camargo is a 75-year-old female, who presented to the emergency department with shortness of breath and hypoxemia at the Infusion Center and found to have evidence of some mild intravascular volume overload as well as bilateral pleural effusions. PROBLEM LIST: 1. Large bilateral pleural effusions. 2. Intravascular volume overload. 3. Elevated troponin value. 4. Acute on chronic hypoxic respiratory failure. 5. Recent history of MRSA infection. PLAN: 1. Large bilateral pleural effusions, unclear etiology at this time as reportedly an echocardiogram done at [facility] in July showed preserved ejection fraction. However, she has had a fairly complicated medical course since then. We will check an echocardiogram as well as hepatic function panel to evaluate for her albumin level. We will provide some IV Lasix diuresis as well as a pulmonology consultation for possible diagnostic and therapeutic thoracentesis. 2. Intravascular volume overload. Again, gentle IV Lasix diuresis. Follow up echocardiogram. 3. Elevated troponin value likely secondary to demand ischemia as the patient denies any chest pain. However, she is a poor historian. EKG is nonischemic but does show some very mild lateral ST depressions. We will continue to trend out her cardiac enzymes. History And Physical [address] [address] NAME: SOCO CAMARGO : 41 STATUS : ADM IN [facility]#: [id number] AGE: 75 ADM/REG DATE : 10/28/16 MR#: [id number] REPORT SERV DATE: 10/29/16 DICTATED BY: LESTER ROY DATE: 10/29/16 REPORT STATUS : Draft TRANSCRIBED BY: MODL DATE: 10/29/16 4. Acute on chronic hypoxic respiratory failure likely secondary to #1 and #2 above. We will continue to diurese with Lasix as well as possible thoracentesis. 5. MRSA infection. We will continue IV vancomycin per pharmacy guidance. 6. DVT prophylaxis. Lovenox subcu. CODE STATUS: The patient wishes to be full code. CHICO/JOSEL Lester Roy MD / [id number] CC: Candelaria Bingham M.D. Andrew H Fowler, M.D.
--- NOTE | ~2016-10-28 | CN ---
Consultation Report [address] [place]. [address] NAME: SOCO CAMARGO : 42 STATUS : ADM IN [facility]#: [id number] AGE: 75 ADM/REG DATE : 10/28/16 MR#: [id number] REPORT SERV DATE: 10/29/16 DICTATED BY: JOHN CURTIS DATE: 10/29/16 REPORT STATUS : Draft TRANSCRIBED BY: MODL DATE: 10/29/16 DATE OF CONSULTATION: 10/29/2016 PRIMARY VETERINARY NURSE: Leonel Paz M.D. REASON FOR CONSULTATION: Troponinemia. HISTORY OF PRESENT ILLNESS: Ms. Camargo is a 75-year-old female with an extensive medical history, including chronic kidney disease, hypertension, hyperlipidemia, nonobstructive coronary artery disease (2011 coronary angiography with 30% circumflex and 30% ramus), preserved LV and RV function and depression, who presents from a rehab facility where she resides for several months or more (she is a very poor historian) with worsening dyspnea of unspecified etiology. She states that she has been having a more difficult time breathing over the past several months and this has worsened just recently. She is unclear as to what circumstances provoked these symptoms. She otherwise complains of pain diffusely. She has pain in her lower back as well as in her chest on and off at times. When asked whether she has had any chest pains recently, she does not provide any useful information about this. She otherwise has no complaints at this time, and again she is a very poor historian. PAST MEDICAL HISTORY: As above. ALLERGIES: NONE LISTED ON EMR. SOCIAL HISTORY: Unable to obtain as she is poor historian. The patient, however, does live in a rehab facility at this time. FAMILY HISTORY: Noncontributory for premature cardiovascular disease as far as I am able to discern. HOME MEDICATIONS: 1. Tylenol. 2. DuoNeb. 3. Proventil. 4. Norvasc. 5. Lipitor. 6. Questran. 7. Depakote. 8. Flonase. 9. Levsin. 10.Ativan. 11.Remeron. 12.Bactroban. 13.Roxicodone. 14.Potassium. 15.Florastor. Consultation Report [address] [place]. [address] NAME: SOCO CAMARGO : 41 STATUS : ADM IN PAT#: [id number] AGE: 75 ADM/REG DATE : 10/28/16 MR#: [id number] REPORT SERV DATE: 10/29/16 DICTATED BY: JOHN CURTIS DATE: 10/29/16 REPORT STATUS : Draft TRANSCRIBED BY: MODL DATE: 10/29/16 16.Mytab Gas. 17.Vancomycin, started 10/08. REVIEW OF SYSTEMS: As above, all other systems negative (however, limited historian). PHYSICAL EXAMINATION: VITAL SIGNS: Blood pressure 118/58, pulse 65, temperature 97.0. GENERAL: Disheveled, failure to thrive, poorly kempt, anxious. NEURO: Awake, alert, and oriented x3. No focal deficits. Appropriate mood. HEAD AND NECK: Normocephalic and atraumatic. Moist mucous membranes. NECK: No JVD. No carotid bruit. RESPIRATORY: Positive for rales bilaterally with mildly increased work of breathing as well as grossly audible wheezing (expiratory). CV: Regular rhythm. Normal S1/S2. No murmurs, rubs, or gallops. ABD: Soft, non-tender, non-distended. No rebound or guarding. EXT: 2+ pitting edema in the lower extremities bilaterally with 1+ pulses throughout. SKIN: Warm, dry, and intact. No rash. PERTINENT TEST FINDINGS: Potassium 4.3, creatinine 1.33, GFR 46, glucose 145. White blood cell count 3.5, down from 10.2; hemoglobin 7.5, down from 8.5. Troponin 0.16, 0.10, 0.10; MB 1.0 and 0.6; CPK 30 and 23. BNP 255. TSH 0.6. EKG with sinus rhythm and nonspecific ST/T changes, ventricular rate 70 beats per minute. IMPRESSION AND PLAN: Ms. Camargo is a 75-year-old female with a very poor functional status/bedridden, hypertension, hyperlipidemia, nonobstructive coronary artery disease, and failure to thrive, who presents with nonspecified symptoms of worsening dyspnea over months in the setting of volume overload. Accordingly, I recommend ongoing diuresis as you are doing. Fluid restrictions. PT/OT consult profound deconditioning. Addition of an aspirin 81 mg p.o. daily as well as a low-dose beta kely given history of nonobstructive coronary disease. Her troponins are flat, but mildly elevated with normal CK/MB fractions and atypical symptoms at best. It might be prudent to check a stress MPI if she becomes a better on an outpatient basis for further ischemia evaluation. However, at this point in time, I do not see a good reason to do this testing. Finally, I will be helpful to check an echocardiogram here as her last study was approximately four years ago. CAMERON/OSCAR John Curtis MD / [id number] Consultation Report [place] [id number] [facility] [place]. [address] NAME: SOCO CAMARGO : 41 STATUS : ADM IN PAT#: [id number] AGE: 75 ADM/REG DATE : 10/28/16 MR#: [id number] REPORT SERV DATE: 10/29/16 DICTATED BY: JOHN CURTIS DATE: 10/29/16 REPORT STATUS : Draft TRANSCRIBED BY: OSCAR DATE: 10/29/16 CC: Candelaria Bingham NP
--- NOTE | ~2016-10-28 | CN ---
Consultation Report [facility] [address] [place]. [address] NAME: ESTEFANY CAMARGO : 41 STATUS : ADM IN PAT#: [id number] AGE: 75 ADM/REG DATE : 10/28/16 MR#: [id number] REPORT SERV DATE: 10/30/16 DICTATED BY: FLASH AVILES DATE: 10/29/16 REPORT STATUS : Draft TRANSCRIBED BY: MODL DATE: 10/29/16 CONSULTATION NOTE DATE OF CONSULTATION: 10/29/2016 CHIEF COMPLAINT: Shortness of breath in a patient with vnfwuivy-gq-hwyhf bilateral pleural effusions. HISTORY OF PRESENT ILLNESS: Mrs. Estefany Camargo is a chronically ill-appearing 75-year-old white female with a past medical history significant for chronic kidney disease, asthma/COPD, chronic hypoxemic respiratory failure, and functional paraplegia, who presents to [facility] from a intermediate facility with complaints of worsening shortness of breath. It should be noted that Mrs. Camargo has had multiple hospitalizations this year and has had a declining course as of late. Mrs. Camargo is not currently followed by a dye weigher. She does wear supplemental oxygen. Although, she is unable to quantify the amount. She does have a nebulizer machine at home, which she uses occasionally. The patient quit smoking about sixteen years ago, prior to this time, she smoked upwards of two packs a day for fifteen to twenty years. She largely denies symptomatology consistent with obstructive sleep apnea. She is unable to quantify her exercise tolerance today. Again, Mrs. Camargo has had multiple hospitalizations already this year. Most recently, she had a complicated course following a back surgery and eventual paraspinal abscess with MRSA on culture. She was eventually discharged to a intermediate facility, where she was continuing ongoing antibiotic therapy. More recently, she began to develop worsening shortness of breath to such a degree that she was referred to [facility]'s Emergency Room. Upon arrival, she was found to have an oxygenation of 95% on 6 L. [place] white blood count [place] [address]. Initial BNP was 254.6. She did have arterial blood gas sampling, which demonstrated pH of 7.43, PaCO2 of 45, PaO2 of 70, and a bicarb of 29.2. She did eventually undergo a CT of the chest to rule out pulmonary embolism. There was no PE noted, but large bilateral effusions were appreciated. The patient did receive steroids, because she was wheezing some. She has received diuretics with good urine output today. She does remain with some degree of dyspnea and as such has been referred to the Pulmonary Service for further assessment. Currently, Mrs. Camargo's main pulmonary complaint is shortness of breath. This is worse with exertion and relieved by rest. She does have a periodic cough that is producing yellow sputum. She does have wheezing in her chest. She does have a remote history of asthma as well as probable clinical COPD. She denies any recent episodes of hemoptysis. She denies any aspiration events recently. She denies recurrent pneumonias. The patient does have known hypertension and dyslipidemia. She does have a manager of purchasing, Dr. Paz, who follows her for these concerns. She does have some chronic lower extremity edema. She denies any murmurs, angina, or palpitations. Consultation Report [address] [address] NAME: ESTEFANY CAMARGO : 41 STATUS : ADM IN [facility]#: [id number] AGE: 75 ADM/REG DATE : 10/28/16 MR#: [id number] REPORT SERV DATE: 10/30/16 DICTATED BY: FLASH AVILES DATE: 10/29/16 REPORT STATUS : Draft TRANSCRIBED BY: OSCAR DATE: 10/29/16 In regard to constitutional symptoms, she currently denies fever, chills, nausea, vomiting, chest pain, abdominal pain. PAST MEDICAL HISTORY: 1. Traumatic brain injury. 2. Functional paraplegia. 3. Chronic lower back pain. 4. Paraspinal abscess - MRSA. 5. Hypertension. 6. Dyslipidemia. 7. Asthma/COPD. 8. Chronic hypoxemic respiratory failure. 9. Breast cancer. PAST SURGICAL HISTORY: 1. Cholecystectomy. 2. Appendectomy. 3. Colon resection. 4. T10 through L3 back surgery in July. 5. Breast lumpectomy. FAMILY HISTORY: The patient states her father and sister both had COPD. SOCIAL HISTORY: The patient is . She has two sons who are in good health. She states that, she worked in the home and knows of no unusual exposures over the years. TOBACCO/ALCOHOL: As previously mentioned, the patient quit smoking about sixteen years ago. Prior to this time, she smoked upwards of two packs a day for about twenty years. She denies any recent alcohol or illicit drug use. MEDICATIONS: 1. DuoNeb. 2. Amlodipine 10 mg. 3. Atorvastatin 10 mg. 4. Cholestyramine. 5. Depakote 250 mg. 6. Lorazepam 0.5 mg. 7. Mirtazapine 15 mg. 8. Oxycodone 5 mg. 9. Potassium chloride 20 mEq. 10.Vancomycin. ALLERGIES: THE PATIENT HAS NO KNOWN ALLERGIES. Consultation Report [address] [place]. [address] NAME: ESTEFANY CAMARGO : 42 STATUS : ADM IN [facility]#: [id number] AGE: 75 ADM/REG DATE : 10/28/16 MR#: [id number] REPORT SERV DATE: 10/30/16 DICTATED BY: FLASH AVILES DATE: 10/29/16 REPORT STATUS : Draft TRANSCRIBED BY: OSCAR DATE: 10/29/16 REVIEW OF SYSTEMS: A complete review of systems was performed with the pertinent positives and negatives came within the body of the HPI. PHYSICAL EXAMINATION: VITAL SIGNS: Blood pressure is 139/62, heart rate 68, T-max 97.6, respiratory rate is 16, SpO2 is 92% on 5 L nasal cannula. GENERAL: The patient is a pleasant, well-nourished/well-developed female, who is not currently exhibiting any signs of acute distress. The patient is slightly confused, but largely answers questions appropriately. Skin: Skin with appropriate texture and turgor. No rashes, lesions, or ulcers. Nails are clear without cyanosis or clubbing. Area of erythema and warmth in the midback. HEENT: Head: Skull is normocephalic/atraumatic. Facies symmetric. No masses or lesions. Eyes: Sclera anicteric, conjunctiva pink without exudates. Extra ocular movements intact. Pupils are equal, round, reactive to light. Ears: Auricles and tragus without pain to palpation. Hearing is grossly intact. Nose: Bilateral nasal patency. Sinuses without tenderness upon palpation. Throat: Dentition. Lips, oral mucosa, tongue, palate, and pharynx pink and moist without lesions. Uvula rises equally on phonation. Tongue midline without deviation. NECK: Neck supple. Trachea midline. No cervical lymphadenopathy appreciated. THORAX/LUNGS: Thorax is symmetric with equal chest rise. Scattered wheezes throughout as well as very diminished breath sounds in the posterior bases. CARDIOVASCULAR: Regular rate and rhythm. No murmurs, rubs, or gallops. Anterior chest without thrills, heaves, or lifts. ABDOMEN: Soft. Non-distended, non-tender. Active bowel sounds in all four quadrants. No hepatosplenomegaly noted. PERIPHERAL VASCULAR: 1+ pitting edema. No varicosities, stasis changes, open sores, ulcerations, or phlebitis. 2+ pulses in radial and dorsalis pedis. MUSCULOSKELETAL: Full AROM and PROM in all joints. No evidence of erythema, deformity, or crepitus. NEUROLOGIC: CN II - XII grossly intact. Good muscle bulk and tone bilaterally. Strength 5/5 throughout. PSYCHIATRIC: Patient demonstrates good judgment and insight. Pt is A&O x 3. ACCESSORY DATA: Reveals a creatinine of 1.33. White blood cell count of 3500. CT of the chest reveals no PE. There are large bilateral pleural effusions. Previous echocardiogram reveals a left ventricular ejection fraction of 55%. IMPRESSION: 1. Volume overload. 2. Vhmoh-tm-fvxkbny hypoxemic respiratory failure. 3. Yaxhseui-hc-ibriy bilateral pleural effusions, first noted on abdominal CT in 09/29/2016. 4. Clinical chronic obstructive pulmonary disease. 5. Chronic kidney disease. Consultation Report [address] [address] NAME: ESTEFANY CAMARGO : 42 STATUS : ADM IN [facility]#: [id number] AGE: 75 ADM/REG DATE : 10/28/16 MR#: [id number] REPORT SERV DATE: 10/30/16 DICTATED BY: FLASH AVILES DATE: 10/29/16 REPORT STATUS : Draft TRANSCRIBED BY: MODL DATE: 10/29/16 6. Methicillin-resistant Staphylococcus aureus wound infection. PLAN: 1. At this time, we agree with aggressive diuretics with close attention to the patient's blood pressure and renal function. 2. In regard to the patient's rgfoc-tw-paenskw hypoxemic respiratory failure, we will attempt to wean her oxygen as she is diuresed. 3. In regard to the patient's xdhqdcai-ac-rndsm bilateral pleural effusions, given the likely etiology of volume overload, we would hopefully manage this with medical management. That being said, if she were to have worsening pulmonary status or persistent inability to mobilize these effusions, we would consider thoracentesis. It should be noted that she does have more erythema noted over the left thorax, thus complicating a left-sided thoracentesis. Bedside ultrasound was performed, which did demonstrate appropriate windows on the left and the right. We will follow closely moving forward. 4. In regard to the patient's clinical COPD, she does have some wheezing. We will place her on some low-dose oral prednisone and provide her with full armamentarium of nebulized medications. The aforementioned impression and plan has been discussed with Dr. Cole, who will follow further recommendations. We thank you for this consult and look forward to participating in the care of Mrs Estefany Camargo. GBS/MODL Flash Aviles PA-C / [id number] CC: Candelaria Bingham NP
--- NOTE | ~2016-10-28 | IDS ---
Interim Discharge Summary [facility] [address] [place]. [address] NAME: SOCO HERRERA : 42 STATUS : ADM IN [facility]#: [id number] AGE: 75 ADM/REG DATE : 10/28/16 MR#: [id number] REPORT SERV DATE: 11/02/16 DICTATED BY: GI ACUNA DATE: 11/02/16 REPORT STATUS : Draft TRANSCRIBED BY: MODL DATE: 11/02/16 ADMISSION DATE: 10/28/2016 DISCHARGE DATE: Days of service provided from 10/29/2016 to 11/02/2016. Please also refer to the history of present illness dictated by Dr. Pierre on 10/28/2016. CONSULTANTS ON THE CASE: Transmission Inspector, Dr. Heredia; Pulmonary nurse practitioner, Miguel Valdovinos; ticket seller, Dr. Cole and Dr. Subramanian; Infectious Disease, Dr. Wesley Young and Dr. Lovell of Spine Ortho Surgery. CURRENT MEDICAL PROBLEMS: 1. Acute respiratory failure, present on admission, resolved. 2. Chronic respiratory failure, O2 dependent. Currently oxygen saturation looks like at baseline, is 98% on 2 L nasal cannula. 3. Bilateral pleural effusion according to Pulmonary, unchanged since previous studies, has chronic bilateral pleural effusions. 4. Elevated troponin on admission secondary to demand ischemia. Evaluated by Cardiology. No evidence of cardiac damage. 5. Acute kidney injury secondary to diuretics resolved. Creatinine at the baseline, stable. 6. Anemia of chronic disease, stable hemoglobin status post one unit of blood transfusion. 7. Recent L1 burst fracture. Surgery on the L1 during previous hospitalization by Dr. Lovell. 8. Wound infection. Needs to continue intravenous daptomycin for 12 more days per recommendation of Dr. Wesley Young. 9. History of moderate dementia with confusion at the baseline. 10.History of advanced COPD. 11.Chronic kidney disease. Stable creatinine. 12.She also has history of traumatic brain injury in the past. HISTORY OF PRESENT ILLNESS: Briefly, this is a 75-year-old female, who came from assisted because of shortness of breath and her troponin level was minimally elevated at 0.1. She was evaluated by environmental scientists on admission who thinks that this is demand ischemia. No evidence of cardiac damage. She had echocardiogram done on 10/29/2016, which showed ejection fraction of 60%, normal right and left ventricular systolic function. Regarding her hypoxemia, she was placed on intravenous diuretics because of large pleural effusions. She was diuresed and her oxygenation improved. She is now 98% on 2 L nasal cannula but we could not give her more diuretics because diuretics made her kidney function worse. Her creatinine on admission was 1.28 and then increased to 1.5. After diuretics were discontinued, it came back into the baseline, now is 1.03 today. Her hemoglobin is stable after one unit of blood transfusion two days ago, it is 9.4 today. Regarding her chest x-ray, it showed stable small pleural effusions and the lower lobe comprised subsegmental atelectasis. This was evaluated by Miguel Valdovinos, nurse practitioner Interim Discharge Summary [address] [address] NAME: SOCO HERRERA : 42 STATUS : ADM IN [facility]#: [id number] AGE: 75 ADM/REG DATE : 10/28/16 MR#: [id number] REPORT SERV DATE: 11/02/16 DICTATED BY: GI ACUNA DATE: 11/02/16 REPORT STATUS : Draft TRANSCRIBED BY: OSCAR DATE: 11/02/[address] Subramanian, as well as Dr. Subramanian himself, and they recommended to monitor for one more day and if necessary, she may need ultrasound-guided thoracentesis tomorrow. The decision will be made by Pulmonary. 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 As I dictated above, daptomycin should be continued. The plan is to go home with home health since family has care at home on a continuous basis, so Dr. Young recommended 12 more days of daptomycin, it will be arranged per Dr. Young and also per case management associate for home health. I discussed the patient with her family on a daily basis. There is a son and daughter in law very attentive to her. The patient needs to avoid excessive pain medications and since it can make her sleepy and may worsen her respiratory status. This was also discussed with the family. She had history of drug overdose before, so that is why it is really important to avoid pain medication. She is bedridden. She has functional paraplegia, but she was able to move on the wheelchair as well in the past according to family. My partner, Dr. Barron, will see her starting tomorrow morning. MG/MODL Gi Acuna M.D. / [id number] CC: Candelaria Bingham NP Vimal Ramjee, MD Paul Cornea, M.D. Carlos Baleeiro, M.D. Krishnendu Bhadra, M.D.
[2016-10-28 12:26] LABS: BASOPHILS 0.3 %; BASOPHILS ABSOLUTE 0.03 10/3/uL (0.0-0.16); EOSINOPHILS 2.2 %; EOSINOPHILS ABSOLUTE 0.22 10/3/uL (0.0-0.53); HEMATOCRIT 28.3 % (36.0-48.0); HEMOGLOBIN 8.5 g/dL (12.0-16.0); IMMATURE GRANULOCYTES 2.1 %; LYMPHOCYTES ABSOLUTE 5.01 10/3/uL (0.67-4.30); MANUAL DIFF NO %; MEAN CORPUSCULAR HEMOGLOB 30.8 pg (26.0-34.0); MEAN CORPUSCULAR VOLUME 102.5 fL (80-100); MEAN PLATELET VOLUME 9.8 fL (9.2-13.0); MONOCYTES 11.9 %; MONOCYTES ABSOLUTE 1.22 10/3/uL (0.21-1.20); NEUTROPHILS 34.5 %; NEUTROPHILS ABSOLUTE 3.54 10/3/uL (2.02-8.40); PLATELET COUNT 214 10/3/uL (150-400); RED CELL COUNT 2.76 10/6/uL (4.0-5.6); WHITE BLOOD CELLS 10.2 10/3/uL (4.5-10.5)
[2016-10-28 12:27] LABS: IMMATURE GRANULOCYTES ABSOLUTE 0.21 10/3/uL (0.0-0.11)
[2016-10-28 12:32] LABS: ALLENS TEST Pos; BE (BASE EXCESS) 4.4 MEQ/L (0 +/- 2.5); CARBOXYHEMOGLOBIN 1.6 % (0-3); DEVICE NC; HCO3 (ACTUAL BICARBONATE) 29.2 MEQ/L (23-27); HEMOBLOGIN CONTENT 9.3 G/DL (12-16); INSTRUMENT SERIAL # 8087; METHEMOGLOBIN 0.3 % (0-3); PCO2 (CO2 TENSION) 45 MMHG (35-45); PO2 (O2 TENSION) 70 MMHG (79-93); SAMPLE Arterial; pH 7.43 (7.37-7.43)
[2016-10-28 12:34] LABS: INTERNATIONAL NORMAL RATI 1.1 UNITS (-); PARTIAL THROMBO TIME 28.1 SEC (22.5-37.2)
[2016-10-28 12:43] LABS: CALCIUM, SERUM 8.7 MG/DL (8.5-10.4); CHLORIDE, SERUM 105 MMOL/L (96-112); CO2 (CARBON DIOXIDE) 33 MMOL/L (24-34); SODIUM, SERUM 143 MMOL/L (135-148)
[2016-10-28 12:44] LABS: BUN (BLOOD UREA NITROGEN) 12 MG/DL (6-23); CHEST PAIN PROFILE TAT 0 Hrs 22 Mins; CREATININE 1.28 MG/DL (0.55-1.02); GFR AFRICAN AMERICAN 48 ML/MIN (>=60); GFR NON AFRICAN AMERICAN 41 ML/MIN (>=60); GLUCOSE, SERUM 109 MG/DL (60-99); POTASSIUM, SERUM 4.2 MMOL/L (3.5-5.3); TROPONIN I 0.16 NG/ML (<0.05)
[2016-10-28 13:10] LABS: ANISOCYTOSIS 1+ (5-10/OIF) (0-5/OIF); BAND NEUTROPHILS 1 %; EOSINOPHILS 2 %; ER DIFF TAT 0 Hrs 48 Mins; LYMPHOCYTES 48 %; MACROCYTES 1+ (5-10/OIF) (0-5/OIF); METAMYELOCYTES 1 %; MONOCYTES 12 %; MONOCYTES ABSOLUTE (CALC) 1.22 10/3/uL (0.21-1.20); NEUTROPHILS ABSOLUTE (CALC) 3.77 10/3/uL (2.02-8.40); PLATELET ESTIMATE ADQ (ADEQUATE); SEGMENTED NEUTROPHIL (0) 36 %; TOTAL NUCLEATED CELLS 100
[2016-10-28] MEDS ORDERED: FLORASTOR250 MG PO (19:44)
[2016-10-28] MEDS ORDERED: LIPITOR10 PO (19:44)
[2016-10-28] MEDS ORDERED: NORV10 PO (19:44)
[2016-10-28] MEDS ORDERED: DEPAKOT250 PO (19:44)
[2016-10-28] MEDS ORDERED: FLONASE NAS (19:45)
[2016-10-28] MEDS ORDERED: DITRO5 PO (19:45)
[2016-10-28] MEDS ORDERED: KLOR-CON M2020 MEQ PO (19:45)
[2016-10-28] MEDS ORDERED: OXYCOD PO (19:46)
[2016-10-28] MEDS ORDERED: ATV.5 PO (19:46)
[2016-10-28] MEDS ORDERED: VANCO1P IV (19:47)
[2016-10-28] MEDS ORDERED: QUESLITE PO (19:54)
[2016-10-28] MEDS ORDERED: MYTAB GAS80 MG PO (19:54)
[2016-10-28] MEDS ORDERED: DUONEB INH (19:55)
[2016-10-28] MEDS ORDERED: LEVSINTAB PO/SL (19:55)
[2016-10-28] MEDS ORDERED: PROVHFA INH (19:58)
[2016-10-28] MEDS ORDERED: REM15 PO (19:58)
[2016-10-28] MEDS ORDERED: T PO (19:59)
[2016-10-28 22:06] LABS: CPK 30 U/L (0-200)
[2016-10-28 23:28] LABS: ALBUMIN 2.6 G/DL (3.5-5.0); ALKALINE PHOSPHATASE 120 U/L (45-117); FREE T4 1.22 NG/DL (0.76-1.46); SGOT(AST) 21 U/L (5-40); SGPT(ALT) 12 U/L (5-65); TOTAL BILIRUBIN 0.3 MG/DL (0-1.2); ULTRASENSITIVE TSH 0.612 MCIU/ML (0.358-3.740)
[2016-10-28 23:39] LABS: DIRECT BILIRUBIN < 0.1 MG/DL (0.0-0.4); INDIRECT BILIRUBIN(NOT ORDER) 0.2 MG/DL (0.1-0.9); TOTAL PROTEIN 7.9 G/DL (6.0-8.5)
[2016-10-29 04:29] LABS: BASOPHILS 0 %; EOSINOPHILS 0 %; HEMOGLOBIN 7.5 g/dL (12.0-16.0); IMMATURE GRANULOCYTES 2.3 %; IMMATURE GRANULOCYTES ABSOLUTE 0.08 10/3/uL (0.0-0.11); LYMPHOCYTES 40.4 %; LYMPHOCYTES ABSOLUTE 1.41 10/3/uL (0.67-4.30); MEAN CORPUS HGB CONC 30.9 g/dL (32.0-36.0); MEAN CORPUSCULAR HEMOGLOB 30.7 pg (26.0-34.0); MEAN CORPUSCULAR VOLUME 99.6 fL (80-100); MEAN PLATELET VOLUME 9.9 fL (9.2-13.0); MONOCYTES 3.2 %; MONOCYTES ABSOLUTE 0.11 10/3/uL (0.21-1.20); NEUTROPHILS 54.1 %; NEUTROPHILS ABSOLUTE 1.89 10/3/uL (2.02-8.40); PLATELET COUNT 155 10/3/uL (150-400); RBC DISTRIBUTION WIDTH 19.4 % (12.0-16.0); RED CELL COUNT 2.44 10/6/uL (4.0-5.6)
[2016-10-29 04:32] LABS: HEMATOCRIT 24.3 % (36.0-48.0); MANUAL DIFF NO %; WHITE BLOOD CELLS 3.5 10/3/uL (4.5-10.5)
[2016-10-29 04:59] LABS: ALBUMIN 2.4 G/DL (3.5-5.0); CALCIUM, SERUM 8.4 MG/DL (8.5-10.4); CHLORIDE, SERUM 103 MMOL/L (96-112); CO2 (CARBON DIOXIDE) 31 MMOL/L (24-34); CPK 23 U/L (0-200); CREATININE 1.33 MG/DL (0.55-1.02); GFR AFRICAN AMERICAN 46 ML/MIN (>=60); GFR NON AFRICAN AMERICAN 39 ML/MIN (>=60); POTASSIUM, SERUM 4.3 MMOL/L (3.5-5.3); SODIUM, SERUM 142 MMOL/L (135-148)
[2016-10-29 05:01] LABS: BUN (BLOOD UREA NITROGEN) 18 MG/DL (6-23); CK-MB 0.6 NG/ML; GLUCOSE, SERUM 145 MG/DL (60-99); PHOSPHORUS, SERUM 3.9 MG/DL (2.5-4.5)
[2016-10-29 13:46] LABS: CK-MB 0.7 NG/ML; CPK 30 U/L (0-200); TROPONIN I 0.08 NG/ML (<0.05)
[2016-10-29 22:53] LABS: ASCORBIC ACID (UR NOT ORDER) NEG (NEG); BILIRUBIN, URINE NEGATIVE (NEG); KETONE, URINE NEGATIVE (NEG); LEUKOCYTE ESTERASE(NOT OR SMALL (NEG); WBC (NOT ORDERED) (RFLEX) 13 (0-5)
[2016-10-29 23:07] LABS: CREATININE, URINE 50.4 MG/DL
[2016-10-30 05:20] LABS: CALCIUM, SERUM 7.8 MG/DL (8.5-10.4); CHLORIDE, SERUM 100 MMOL/L (96-112); CO2 (CARBON DIOXIDE) 30 MMOL/L (24-34); CREATININE 1.53 MG/DL (0.55-1.02); GFR AFRICAN AMERICAN 38 ML/MIN (>=60); GFR NON AFRICAN AMERICAN 33 ML/MIN (>=60); GLUCOSE, SERUM 128 MG/DL (60-99); PHOSPHORUS, SERUM 3.5 MG/DL (2.5-4.5); POTASSIUM, SERUM 3.9 MMOL/L (3.5-5.3); SODIUM, SERUM 140 MMOL/L (135-148)
[2016-10-30 05:21] LABS: BASOPHILS 0 %; EOSINOPHILS 0 %; HEMATOCRIT 24.9 % (36.0-48.0); HEMOGLOBIN 7.8 g/dL (12.0-16.0); IMMATURE GRANULOCYTES 1.3 %; IMMATURE GRANULOCYTES ABSOLUTE 0.08 10/3/uL (0.0-0.11); LYMPHOCYTES 21.5 %; LYMPHOCYTES ABSOLUTE 1.36 10/3/uL (0.67-4.30); MEAN CORPUS HGB CONC 31.3 g/dL (32.0-36.0); MEAN CORPUSCULAR HEMOGLOB 31.3 pg (26.0-34.0); MEAN PLATELET VOLUME 10.2 fL (9.2-13.0); MONOCYTES 5.2 %; MONOCYTES ABSOLUTE 0.33 10/3/uL (0.21-1.20); NEUTROPHILS ABSOLUTE 4.56 10/3/uL (2.02-8.40); PLATELET COUNT 188 10/3/uL (150-400); RBC DISTRIBUTION WIDTH 20.6 % (12.0-16.0); RED CELL COUNT 2.49 10/6/uL (4.0-5.6)
[2016-10-30 05:27] LABS: BUN (BLOOD UREA NITROGEN) 25 MG/DL (6-23); MANUAL DIFF NO %; WHITE BLOOD CELLS 6.3 10/3/uL (4.5-10.5)
[2016-10-31 05:03] LABS: BASOPHILS 0.1 %; BASOPHILS ABSOLUTE 0.01 10/3/uL (0.0-0.16); EOSINOPHILS 0.3 %; EOSINOPHILS ABSOLUTE 0.02 10/3/uL (0.0-0.53); HEMATOCRIT 24.5 % (36.0-48.0); HEMOGLOBIN 7.6 g/dL (12.0-16.0); IMMATURE GRANULOCYTES 1.8 %; IMMATURE GRANULOCYTES ABSOLUTE 0.12 10/3/uL (0.0-0.11); LYMPHOCYTES ABSOLUTE 2.43 10/3/uL (0.67-4.30); MEAN CORPUSCULAR HEMOGLOB 31.5 pg (26.0-34.0); MEAN CORPUSCULAR VOLUME 101.7 fL (80-100); MONOCYTES 15.9 %; MONOCYTES ABSOLUTE 1.07 10/3/uL (0.21-1.20); NEUTROPHILS 45.9 %; PLATELET COUNT 195 10/3/uL (150-400); RED CELL COUNT 2.41 10/6/uL (4.0-5.6); WHITE BLOOD CELLS 6.8 10/3/uL (4.5-10.5)
[2016-10-31 05:08] LABS: MANUAL DIFF NO %
[2016-10-31 05:15] LABS: BUN (BLOOD UREA NITROGEN) 22 MG/DL (6-23); CALCIUM, SERUM 7.8 MG/DL (8.5-10.4); CHLORIDE, SERUM 102 MMOL/L (96-112); CO2 (CARBON DIOXIDE) 33 MMOL/L (24-34); CREATININE 1.41 MG/DL (0.55-1.02); GFR AFRICAN AMERICAN 42 ML/MIN (>=60); GFR NON AFRICAN AMERICAN 37 ML/MIN (>=60); SODIUM, SERUM 142 MMOL/L (135-148)
[2016-10-31 05:18] LABS: GLUCOSE, SERUM 93 MG/DL (60-99)
[2016-11-01 04:59] LABS: HEMOGLOBIN 7.5 g/dL (12.0-16.0)
[2016-11-01 05:09] LABS: BUN (BLOOD UREA NITROGEN) 19 MG/DL (6-23); CHLORIDE, SERUM 103 MMOL/L (96-112); CREATININE 1.17 MG/DL (0.55-1.02); GFR AFRICAN AMERICAN 53 ML/MIN (>=60); GFR NON AFRICAN AMERICAN 46 ML/MIN (>=60); SODIUM, SERUM 139 MMOL/L (135-148)
[2016-11-01 05:10] LABS: CO2 (CARBON DIOXIDE) 28 MMOL/L (24-34); GLUCOSE, SERUM 114 MG/DL (60-99); POTASSIUM, SERUM 4.6 MMOL/L (3.5-5.3)
[2016-11-02 05:20] LABS: HEMOGLOBIN 9.3 g/dL (12.0-16.0)
[2016-11-02 05:38] LABS: BUN (BLOOD UREA NITROGEN) 20 MG/DL (6-23); CALCIUM, SERUM 8.2 MG/DL (8.5-10.4); CHLORIDE, SERUM 104 MMOL/L (96-112); CO2 (CARBON DIOXIDE) 32 MMOL/L (24-34); CREATININE 1.19 MG/DL (0.55-1.02); GFR AFRICAN AMERICAN 52 ML/MIN (>=60); GFR NON AFRICAN AMERICAN 45 ML/MIN (>=60); SODIUM, SERUM 142 MMOL/L (135-148)
[2016-11-02 05:43] LABS: GLUCOSE, SERUM 90 MG/DL (60-99); POTASSIUM, SERUM 3.5 MMOL/L (3.5-5.3)
[2016-11-02 13:27] LABS: HEMOGLOBIN 9.4 g/dL (12.0-16.0); MANUAL DIFF YES %; MEAN CORPUS HGB CONC 31.3 g/dL (32.0-36.0); MEAN CORPUSCULAR HEMOGLOB 31.2 pg (26.0-34.0); MEAN CORPUSCULAR VOLUME 99.7 fL (80-100); MEAN PLATELET VOLUME 9.9 fL (9.2-13.0); PLATELET COUNT 162 10/3/uL (150-400); RBC DISTRIBUTION WIDTH 20.5 % (12.0-16.0); RED CELL COUNT 3.01 10/6/uL (4.0-5.6); WHITE BLOOD CELLS 9.3 10/3/uL (4.5-10.5)
[2016-11-02 13:45] LABS: A/G RATIO 0.6 (0.7-1.9); ALBUMIN 2.6 G/DL (3.5-5.0); BUN (BLOOD UREA NITROGEN) 17 MG/DL (6-23); CALCIUM, SERUM 8.5 MG/DL (8.5-10.4); CHLORIDE, SERUM 106 MMOL/L (96-112); CO2 (CARBON DIOXIDE) 29 MMOL/L (24-34); CPK 17 U/L (0-200); CREATININE 1.03 MG/DL (0.55-1.02); GFR AFRICAN AMERICAN 62 ML/MIN (>=60); GFR NON AFRICAN AMERICAN 54 ML/MIN (>=60); GLOBULIN 4.3 G/DL (2.5-4.1); GLUCOSE, SERUM 83 MG/DL (60-99); POTASSIUM, SERUM 3.7 MMOL/L (3.5-5.3); SGOT(AST) 18 U/L (5-40); SGPT(ALT) 11 U/L (5-65); SODIUM, SERUM 142 MMOL/L (135-148); TOTAL BILIRUBIN 0.3 MG/DL (0-1.2); TOTAL PROTEIN 6.9 G/DL (6.0-8.5)
[2016-11-02 13:46] LABS: ALKALINE PHOSPHATASE 91 U/L (45-117); ANISOCYTOSIS 1+ (5-10/OIF) (0-5/OIF); BAND NEUTROPHILS 2 %; BASOPHILS 1 %; BASOPHILS ABSOLUTE (CALC) 0.09 10/3/uL (0.0-0.16); EOSINOPHILS 1 %; EOSINOPHILS ABSOLUTE (CALC) 0.09 10/3/uL (0.0-0.53); LYMPHOCYTES 16 %; LYMPHOCYTES ABSOLUTE (CALC) 1.49 10/3/uL (0.67-4.30); MONOCYTES 6 %; MONOCYTES ABSOLUTE (CALC) 0.56 10/3/uL (0.21-1.20); NEUTROPHILS ABSOLUTE (CALC) 7.07 10/3/uL (2.02-8.40); PLATELET ESTIMATE ADQ (ADEQUATE); SEGMENTED NEUTROPHIL (0) 74 %; TOTAL NUCLEATED CELLS 100
[2016-11-03 04:19] LABS: HEMATOCRIT 31.4 % (36.0-48.0); HEMOGLOBIN 9.6 g/dL (12.0-16.0)
[2016-11-03 04:30] LABS: BUN (BLOOD UREA NITROGEN) 17 MG/DL (6-23); CALCIUM, SERUM 8.4 MG/DL (8.5-10.4); CHLORIDE, SERUM 107 MMOL/L (96-112); CO2 (CARBON DIOXIDE) 30 MMOL/L (24-34); CREATININE 1.09 MG/DL (0.55-1.02); GFR AFRICAN AMERICAN 58 ML/MIN (>=60); GFR NON AFRICAN AMERICAN 50 ML/MIN (>=60); GLUCOSE, SERUM 85 MG/DL (60-99); POTASSIUM, SERUM 3.6 MMOL/L (3.5-5.3); SODIUM, SERUM 146 MMOL/L (135-148)
[2016-11-03] MEDS ORDERED: HALF81 PO (12:28)
[2016-11-03] MEDS ORDERED: LOP25 PO (12:34)
[2016-11-03] MEDS ORDERED: CUBICIN500 MG IV (12:35)
[2016-11-03 13:21] LABS: HEMATOCRIT 33.6 % (36.0-48.0); HEMOGLOBIN 10.6 g/dL (12.0-16.0); MEAN CORPUS HGB CONC 31.5 g/dL (32.0-36.0); MEAN CORPUSCULAR HEMOGLOB 31.5 pg (26.0-34.0); MEAN CORPUSCULAR VOLUME 99.7 fL (80-100); PLATELET COUNT 172 10/3/uL (150-400); RBC DISTRIBUTION WIDTH 19.7 % (12.0-16.0); RED CELL COUNT 3.37 10/6/uL (4.0-5.6)
[2016-11-03 13:22] LABS: MANUAL DIFF YES %
[2016-11-03 13:38] LABS: A/G RATIO 0.7 (0.7-1.9); ALKALINE PHOSPHATASE 112 U/L (45-117); BUN (BLOOD UREA NITROGEN) 14 MG/DL (6-23); CALCIUM, SERUM 8.6 MG/DL (8.5-10.4); CHLORIDE, SERUM 103 MMOL/L (96-112); CO2 (CARBON DIOXIDE) 32 MMOL/L (24-34); CPK 21 U/L (0-200); CREATININE 1.04 MG/DL (0.55-1.02); GFR AFRICAN AMERICAN 61 ML/MIN (>=60); GFR NON AFRICAN AMERICAN 53 ML/MIN (>=60); GLOBULIN 4.6 G/DL (2.5-4.1); GLUCOSE, SERUM 110 MG/DL (60-99); POTASSIUM, SERUM 3.9 MMOL/L (3.5-5.3); SGOT(AST) 17 U/L (5-40); SGPT(ALT) 13 U/L (5-65); SODIUM, SERUM 140 MMOL/L (135-148); TOTAL BILIRUBIN 0.8 MG/DL (0-1.2); TOTAL PROTEIN 7.6 G/DL (6.0-8.5)
[2016-11-03 13:47] LABS: BAND NEUTROPHILS 9 %; LYMPHOCYTES 20 %; MONOCYTES 8 %; MONOCYTES ABSOLUTE (CALC) 0.88 10/3/uL (0.21-1.20); NEUTROPHILS ABSOLUTE (CALC) 7.92 10/3/uL (2.02-8.40); SEGMENTED NEUTROPHIL (0) 63 %; TOTAL NUCLEATED CELLS 100
[2016-11-03 13:48] LABS: ANISOCYTOSIS 1+ (5-10/OIF) (0-5/OIF); PLATELET ESTIMATE ADQ (ADEQUATE); POLYCHROMASIA 1+ (2-5/OIF) (0-1/OIF)
[2016-11-04 12:49] LABS: BASOPHILS 0.1 %; BASOPHILS ABSOLUTE 0.01 10/3/uL (0.0-0.16); EOSINOPHILS 1.8 %; HEMATOCRIT 32.4 % (36.0-48.0); HEMOGLOBIN 10.1 g/dL (12.0-16.0); IMMATURE GRANULOCYTES 0.9 %; LYMPHOCYTES ABSOLUTE 2.84 10/3/uL (0.67-4.30); MEAN CORPUS HGB CONC 31.2 g/dL (32.0-36.0); MEAN CORPUSCULAR HEMOGLOB 31.3 pg (26.0-34.0); MEAN CORPUSCULAR VOLUME 100.3 fL (80-100); MEAN PLATELET VOLUME 9.9 fL (9.2-13.0); MONOCYTES 10.4 %; MONOCYTES ABSOLUTE 1.14 10/3/uL (0.21-1.20); NEUTROPHILS 60.8 %; NEUTROPHILS ABSOLUTE 6.63 10/3/uL (2.02-8.40); PLATELET COUNT 154 10/3/uL (150-400); RBC DISTRIBUTION WIDTH 19.1 % (12.0-16.0); RED CELL COUNT 3.23 10/6/uL (4.0-5.6); WHITE BLOOD CELLS 10.9 10/3/uL (4.5-10.5)
[2016-11-04 12:53] LABS: MANUAL DIFF NO %
[2016-11-04 13:05] LABS: A/G RATIO 0.6 (0.7-1.9); ALBUMIN 2.8 G/DL (3.5-5.0); ALKALINE PHOSPHATASE 107 U/L (45-117); BUN (BLOOD UREA NITROGEN) 16 MG/DL (6-23); CALCIUM, SERUM 8.6 MG/DL (8.5-10.4); CHLORIDE, SERUM 107 MMOL/L (96-112); CO2 (CARBON DIOXIDE) 30 MMOL/L (24-34); CREATININE 1.04 MG/DL (0.55-1.02); GFR AFRICAN AMERICAN 61 ML/MIN (>=60); GFR NON AFRICAN AMERICAN 53 ML/MIN (>=60); GLOBULIN 4.6 G/DL (2.5-4.1); GLUCOSE, SERUM 115 MG/DL (60-99); POTASSIUM, SERUM 3.8 MMOL/L (3.5-5.3); SGOT(AST) 17 U/L (5-40); SGPT(ALT) 13 U/L (5-65); SODIUM, SERUM 144 MMOL/L (135-148); TOTAL BILIRUBIN 0.4 MG/DL (0-1.2); TOTAL PROTEIN 7.4 G/DL (6.0-8.5)
[2016-11-19] MEDS ORDERED: DEPAKOT250 PO (16:20)
[2016-11-19] MEDS ORDERED: SEROQUEL50 MG PO (16:22)
[2016-11-19] MEDS ORDERED: LIPITOR10 PO (16:36)
[2016-11-19] MEDS ORDERED: PRIN20 PO (16:36)
[2016-11-19] MEDS ORDERED: DITRO5 PO (16:36)
[2016-11-19] MEDS ORDERED: ULTRAM50 PO (16:37)
[2016-11-19] MEDS ORDERED: ARICEPT10 PO (16:37)
[2016-11-19] MEDS ORDERED: REM15 PO (16:37)
[2016-11-19] MEDS ORDERED: ZOL50 PO (16:37)
[2016-11-19] MEDS ORDERED: LOP25 PO (16:37)
[2016-11-19] MEDS ORDERED: PRILO PO (16:37)
[2016-11-23] MEDS ORDERED: NORV5 PO (10:18)
[2016-11-23] MEDS ORDERED: COREG6 PO (10:19)
[2016-11-23] MEDS ORDERED: KLOR-CON M2020 MEQ PO (10:20)
[2016-11-23] MEDS ORDERED: BUM1 PO (10:21)
[2016-11-23] MEDS ORDERED: PULRESP1 INH ×2 (10:23→10:29)
[2016-11-23] MEDS ORDERED: P10 PO (10:23)
[2016-11-23] MEDS ORDERED: ALBUTEROL5 INH (10:27)
== END 2016-11-04 17:41 | disposition home health service (06) | DRG 186 ==
LOC: ER 12:38 → 5NO 21:02
PROVIDERS: Emergency Medicine; Hospitalist; Internal Medicine; Internal Medicine Infectious Disease
PROC: 30233N1 Transfusion of Nonautologous Red Blood Cells into Peripheral Vein, Percutaneous Approach (ICD-10-PCS; 2016-11-01)
PROC: 02HV33Z Insertion of Infusion Device into Superior Vena Cava, Percutaneous Approach (ICD-10-PCS; principal; 2016-11-04)
PROC: 4A02X4A Measurement of Cardiac Electrical Activity, Guidance, External Approach (ICD-10-PCS; 2016-11-04)
DX: J90 Pleural effusion, not elsewhere classified (principal); J96.21 Acute and chronic respiratory failure with hypoxia; N17.9 Acute kidney failure, unspecified; I24.8 Other forms of acute ischemic heart disease; E87.79 Other fluid overload; F03.90 Unspecified dementia, unspecified severity, without behavioral disturbance, psychotic disturbance, mood disturbance, and anxiety; J44.9 Chronic obstructive pulmonary disease, unspecified; I12.9 Hypertensive chronic kidney disease with stage 1 through stage 4 chronic kidney disease, or unspecified chronic kidney disease; N18.9 Chronic kidney disease, unspecified; E78.5 Hyperlipidemia, unspecified; I25.10 Atherosclerotic heart disease of native coronary artery without angina pectoris; A49.02 Methicillin resistant Staphylococcus aureus infection, unspecified site; Z99.81 Dependence on supplemental oxygen; D64.9 Anemia, unspecified; F44.4 Conversion disorder with motor symptom or deficit; Z87.820 Personal history of traumatic brain injury; Z87.891 Personal history of nicotine dependence
CPT/HCPCS: 36415; 36569; 36600; 71010; 71275; 76775; 80048; 80053; 80069; 80076; 80202; 81001; 82550; 82553; 82570; 82805; 83735; 83880; 84100; 84132; 84300; 84439; 84443; 84484; 85014; 85018; 85025; 85610; 85730; 86850; 86900; 86901; 86920; 87086; 93005; 94640; 96374; 97110-GP; 97116-GP; 97161-GP; 97166-GO; 97530-GP; 97535-GO; 99285; A9270-GY; C1751; C8924; G8978-CL-GP; G8979-CK-GP; G8987-CK-GO; G8988-CK-GO; G8989-CK-GO; J0878; J1940; J2930; J3370; P9016; Q9957; Q9967